=== PATIENT | female | born 1940 | race Caucasian/White ===

== ENCOUNTER 2016-05-27 16:55 | Inpatient (IN) ==
[2016-05-27] MEDS ORDERED: ONDANSETRON 4 MG/2 ML VIAL IV STA (17:27)
[2016-05-27] MEDS ORDERED: HYDROmorphone 2 MG/1 ML VIAL IV STA (17:27)
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
--- NOTE | 2016-05-27 17:54 | CT Report ---
Referring physician: Camden Clancy Exam: CT brain without contrast Date: 05/27/2016 Comparison: MRI brain 01/19/2010 Reason: Fall, head injury, headache Technique: Axial images of the head were obtained without the use of contrast. Total DLP was 1073.10 mGy*cm. Findings: No hydrocephalus or midline shift is present. There is no evidence of an acute infarction, recent intracranial hemorrhage or abnormal mass effect. Diffuse atrophy and cerebral hypodensities. The osseous structures appear intact. Minimal mucosal thickening in the paranasal sinuses. The mastoid air cells are clear. Impression: No acute intracranial abnormality is identified. Persistent atrophy and microvascular disease. Minimal sinusitis. The CT exam was performed using one or more of the following dose reduction techniques: Automated exposure control and adjustment of the mA and/or kV according to patient size. PROCEDURE INTERPRETED AT [facility] DEPARTMENT OF RADIOLOGY Final Report Signed by: Dr. Azra Rodriguez
[2016-05-27] MEDS ORDERED: HYDROmorphone 2 MG/1 ML VIAL ONE (18:09)
[2016-05-27] MEDS ORDERED: ONDANSETRON 4 MG/2 ML VIAL ONE (18:09)
--- NOTE | 2016-05-27 18:17 | CT Report ---
Exam: CT cervical spine without contrast Date: 05/27/2016 Comparison: None Reason: Fall, neck pain, neck trauma Technique: Axial images of the cervical spine were obtained without the use of contrast. Sagittal and coronal reformatted images were also acquired. Total DLP is 1073.10 mGy*cm. Findings: The alignment of the cervical spine is unremarkable. Chronic Schmorl's node with chronic appearing minimal compression of the superior vertebral endplate of T2. No definite acute fracture or spinal cord pathology. Sclerosis with osteophytes and subchondral cysts. 2.4 mm left lateral subluxation of C2 in relationship to C1. Arterial calcifications are noted. At C2-C3, osteophyte/disc complex which contacts the thecal sac. No spinal stenosis or foraminal stenosis.. At C3-C4, osteophyte/disc complex which contacts the thecal sac. No spinal stenosis with right and moderate left foraminal stenosis. At C4-C5, osteophyte/disc complex which contacts the thecal sac. No spinal stenosis with moderate bilateral foraminal stenosis. At C5-C6, osteophyte/disc complex which compresses the thecal sac. No spinal stenosis with moderate bilateral foraminal stenosis. At C6-C7, osteophyte/disc complex which contacts the thecal sac. No spinal stenosis with minimal right moderate left foraminal stenosis. At C7-T1, no disc protrusion, spinal stenosis, or foraminal stenosis. Impression: No definite acute fracture identified. 2.4 mm left lateral subluxation of C2 in relationship to C1. This finding may be somewhat positional or related to the significant multilevel DDD rather than ligamentous injury. If symptoms persist, MRI may be helpful for further evaluation. Chronic appearing Schmorl's node superiorly at T2. This CT exam was performed using one or more of the following dose reduction techniques: Automatic exposure control, adjustment of the MA and/or KV according to patient size, or use of iterative reconstruction technique. PROCEDURE INTERPRETED AT [facility] DEPARTMENT OF RADIOLOGY Final Report Signed by: Dr. Azra Rodriguez
[2016-05-27 18:34] LABS: Basophils % 0.1 % (0.0-0.8); Eosinophils # 0.1 10*3/uL (0.0-0.87); Eosinophils % 0.9 % (0.00-10.9); Hematocrit 37.2 VOL% (35.7-47.0); Hemoglobin 12.2 GM/DL (12.0-16.0); Immature Granulocytes % 0.4 %; Immature Granulocytes Absolute 0.03 #; Lymphocytes % 14.2 % (21.3-54.2); Mean Corpuscular HGB Conc 32.8 GM/DL (32-36); Mean Corpuscular Hemoglobin 32 PG (27-34); Mean Corpuscular Volume 96.9 FL (87-102); Monocytes # 0.7 10*3/uL (0.11-0.8); Monocytes % 10.2 % (1.7-12.7); Neutrophils # 5.2 10*3/uL (1.4-7.4); Neutrophils % 74.2 % (38.7-73.9); Platelet Count 278 T/CUMM (130-400); Red Blood Count 3.84 MC/CUMM (3.8-5.5); Red Cell Distribution Width 15.1 % (9.3-17.3)
--- NOTE | 2016-05-27 18:35 | XRay Report ---
Exam: XR hip 2v w pelvis LT Date: 05/27/2016 5:27 PM Comparison: 07/12/2011 Indication: Left hip pain after fall Technique:[AP pelvis with AP and lateral left hip] Findings: Chronic-appearing deformity of the ilium especially on the right. Acute fractures of the left superior and inferior pubic rami. Osteopenia with degenerative changes. Old healed fracture of the left femur with deformity of the mid to distal femur and residual metallic compression plate and screws. Impression: Osteopenia. Interval acute fractures of the left superior and inferior pubic rami. Chronic deformity of the ilium especially on the right and the left femur with degenerative changes. PROCEDURE INTERPRETED AT [facility] DEPARTMENT OF RADIOLOGY Final Report Signed by: Dr. Azra Rodriguez
--- NOTE | 2016-05-27 18:37 | XRay Report ---
Portable chest Date: 05/27/2016 Clinical history: Shortness of breath Comparison: 10/12/2013 Technique: Portable AP sitting chest Findings: The heart is minimally enlarged with uncoiling of the aorta. Chronic scarring in the lungs with minimal atelectasis at the left lung base. Osteopenia with postoperative findings in the right humerus postoperative findings and in the upper abdomen with prior cholecystectomy. Impression: Minimal cardiomegaly. Chronic scarring with minimal atelectasis at the left lung base. Osteopenia with postoperative findings in the right humerus. PROCEDURE INTERPRETED AT [facility] DEPARTMENT OF RADIOLOGY Final Report Signed by: Dr. Azra Rodriguez
--- NOTE | 2016-05-27 18:38 | XRay Report ---
Exam: XR shoulder 2V LT Date: 05/27/2016 5:27 PM Comparison: None Indication: Pain after fall Technique:[2 view left shoulder] Findings: Osteopenia. Minimal sclerosis and osteophytes. No fracture or dislocation. Impression: Osteopenia with minimal degenerative changes. No fracture or dislocation. PROCEDURE INTERPRETED AT [facility] DEPARTMENT OF RADIOLOGY Final Report Signed by: Dr. Azra Rodriguez
--- NOTE | 2016-05-27 18:38 | XRay Report ---
Exam: XR clavicle LT Date: 05/27/2016 5:27 PM Comparison: None Indication: Pain after fall Technique:[2 view left clavicle] Findings: Osteopenia. Minimal osteophytes. No fracture or dislocation. Impression: Osteopenia with minimal degenerative changes. No fracture or dislocation. PROCEDURE INTERPRETED AT [facility] DEPARTMENT OF RADIOLOGY Final Report Signed by: Dr. Azra Rodriguez
--- NOTE | 2016-05-27 18:39 | XRay Report ---
Exam: XR humerus LT Date: 05/27/2016 5:27 PM Comparison: None Indication: Fall, left humerus pain Technique:[AP and lateral left humerus] Findings: Osteopenia with minimal osteophytes. No fracture or dislocation. Impression: Osteopenia with minimal degenerative changes. No fracture or dislocation. PROCEDURE INTERPRETED AT [facility] DEPARTMENT OF RADIOLOGY Final Report Signed by: Dr. Azra Rodriguez
--- NOTE | 2016-05-27 18:42 | XRay Report ---
Exam: XR femur LT Date: 05/27/2016 5:28 PM Comparison: None Indication: Left hip pain after fall Technique:[AP and lateral left femur] Findings: Osteopenia. Acute displaced fractures of the left superior and inferior pubic ramus. The fracture extends into the area of the symphysis pubis. Chronic deformity of the mid to distal left femur with postoperative findings and old healed fracture. Lateral metallic compression plate with multiple screws. Progressive joint space narrowing especially at the knee. Impression: Osteopenia with acute displaced fractures of the left superior and inferior pubic rami. The fracture extends into the symphysis pubis. Old healed fracture of the left femur with chronic deformity of the mid to distal femur. Stable post operative changes. Progressive degenerative changes especially at the level of the knee. PROCEDURE INTERPRETED AT [facility] DEPARTMENT OF RADIOLOGY Final Report Signed by: Dr. Azra Rodriguez
[2016-05-27 18:44] LABS: PT Patient Result 10.7 SECS
[2016-05-27 19:01] LABS: Apearance,Urine CLOUDY (Clear); Bilirubin,Urine Negative (Negative); Blood, Urine Negative (Negative); Glucose,Urine (UA) Negative (Negative); Ketones,Urine 5 mg/dL (Negative); Mucus,Urine Occasional /LPF (Occasional); Nitrite,Urine Negative (Negative); Protein,Urine 30 MG/DL; RBC,Urine 1 /HPF (0-4); Urine Color Amber (Yellow); Urine Specific Gravity 1.034 (1.001-1.035); Urine Urobilinogen < 2.0 EU/DL (0.2-1.0); WBC,Urine 2 /HPF (0-6)
[2016-05-27 19:11] LABS: Albumin 3.6 G/DL (3.4-5.0); Bilirubin,Total 0.6 MG/DL (0.2-1.0); Calcium 8.8 MG/DL (8.5-10.1); Osmolality,Calculated 288.8 MOS/KG (273-304); Potassium 4.6 MMOL/L (3.5-5.1); Total Protein 6.3 G/DL (6.4-8.3)
[2016-05-27] MEDS ORDERED: ACETAMINOPHEN 325 MG TABLET PO PRN (20:56)
[2016-05-27] MEDS ORDERED: LACTULOSE 20 GM/30 ML UDCUP PO PRN (20:56)
[2016-05-27] MEDS: oxyCODONE/ACETAMINOPHEN 5-325 MG TABLET PO PRN (21:10)
[2016-05-27] MEDS: SODIUM CHLORIDE 0.9% 1,000 ML IV SCH (21:12)
[2016-05-27] MEDS: rOPINIRole 1 MG TABLET PO SCH (23:12)
[2016-05-27] MEDS: DONEPEZIL 10 MG TABLET PO SCH (23:12)
[2016-05-27] MEDS: DOCUSATE SODIUM 100 MG CAPSULE PO SCH (23:13)
[2016-05-27] MEDS: ESCITALOPRAM 10 MG TABLET PO SCH (23:13)
[2016-05-27] MEDS: VITAMIN E 400 UNIT CAPSULE PO SCH (23:13)
[2016-05-27] MEDS: MELOXICAM 7.5 MG TABLET PO SCH (23:13)
[2016-05-27] MEDS: MELATONIN 3 MG TABLET PO SCH (23:13)
[2016-05-28] MEDS: HYDROmorphone 2 MG/1 ML VIAL IV PRN ×2 (04:40→20:37)
[2016-05-28 06:51] LABS: Basophils % 0.2 % (0.0-0.8); Eosinophils # 0.3 10*3/uL (0.0-0.87); Eosinophils % 7.1 % (0.00-10.9); Hematocrit 33.8 VOL% (35.7-47.0); Immature Granulocytes % 0.5 %; Immature Granulocytes Absolute 0.02 #; Lymphocytes # 1.3 10*3/uL (1.4-4.0); Lymphocytes % 32.2 % (21.3-54.2); Mean Corpuscular HGB Conc 32.5 GM/DL (32-36); Mean Corpuscular Hemoglobin 32 PG (27-34); Monocytes # 0.5 10*3/uL (0.11-0.8); Monocytes % 11.3 % (1.7-12.7); Neutrophils % 48.7 % (38.7-73.9); Platelet Count 257 T/CUMM (130-400); Red Blood Count 3.45 MC/CUMM (3.8-5.5); Red Cell Distribution Width 15.4 % (9.3-17.3); White Blood Count 4.1 T/CUMM (4-12)
[2016-05-28 07:33] LABS: Albumin 2.9 G/DL (3.4-5.0); Bilirubin,Total 0.8 MG/DL (0.2-1.0); Calcium 8.2 MG/DL (8.5-10.1); Magnesium 2.3 MG/DL (1.8-2.4); Osmolality,Calculated 290.7 MOS/KG (273-304); Potassium 4.3 MMOL/L (3.5-5.1); Total Protein 5.5 G/DL (6.4-8.3)
[2016-05-28] MEDS ORDERED: PANTOPRAZOLE 40 MG TABLET PO SCH (09:00)
[2016-05-28] MEDS ORDERED: BEE POLLEN 550 MG PO SCH (09:00)
[2016-05-28] MEDS ORDERED: NON-FORMULARY MEDICATION (Lutein [Lutein] 20 MG) PO SCH (09:00)
[2016-05-28] MEDS: CHOLECALCIFEROL 1,000 UNIT TABLET PO SCH (09:16)
[2016-05-28] MEDS: FOLIC ACID 0.4 MG TABLET PO SCH (09:16)
[2016-05-28] MEDS: amLODIPine 5 MG TABLET PO SCH (09:16)
[2016-05-28] MEDS: MULTIVITAMIN (BEROCCA) TABLET PO SCH (09:16)
[2016-05-28] MEDS: DOCUSATE SODIUM 100 MG CAPSULE PO SCH ×2 (09:17→20:38)
[2016-05-28] MEDS: MEMANTINE 10 MG TABLET PO SCH ×2 (09:17→20:39)
[2016-05-28] MEDS: SOLIFENACIN 5 MG TABLET PO SCH (09:17)
[2016-05-28] MEDS: oxyCODONE/ACETAMINOPHEN 5-325 MG TABLET PO PRN ×2 (09:17→14:00)
[2016-05-28] MEDS: ROSUVASTATIN 10 MG TABLET PO SCH (09:17)
--- NOTE | 2016-05-28 09:58 | Orthopedic Consult Note ---
History of Present Illness Chief complaint: pelvic fx, shoulder pain History of present illness: Ms. Joseph is a 75 year old female who fell onto her left side in [place] while travelling back to [place] from [place]. She has an extensive history of a prior fractures of her femur and patella to her left leg. She has a slight leg length discrepancy. She had a midshaft femur fracture that was treated in traction and a distal femur fracture which was treated with a blade plate. She has had a patella fracture which was treated in [place]. She is complaining of left shoulder pain and significant left pelvic pain. The patient's recently passed last month. Left shoulder shows full passive range of motion. Active range of motion is moderately limited secondary to pain. She is slightly tender about her shoulder. She is nontender about her subacromial space. Strength testing is 4 + out of 5 secondary to pain. She has full range of motion of elbow and hand. Left upper extremity is neurovascularly intact. Left lower extremity shows multiple well-healed incisions about her femur and anterior knee. She is approximately a centimeter short. Motion is limited around her hip and knee secondary to pain. Knee is grossly stable. Skin, sensation, murmurs pulses are intact to her foot. Radiographs of her left upper extremity were reviewed and are negative for an acute injury. Radiographs pelvis and femur demonstrate prior well healed midshaft and distal femur fractures. She has a retained blade plate distally. She has displaced left superior and inferior pubic rami fractures. Impression: left pubic rami fractures. left rotator cuff strain Plan: Mobilize with PT/OT. wbat lle. Arixtra for dvt prophylaxis. Probable swing bed/TMR candidate Home Medications Medication Instructions Recorded Confirmed Type Amitriptyline HCl [Amitriptyline 25 mg PO QPM 05/27/16 05/27/16 History HCl] Amlodipine Besylate [Amlodipine 5 mg PO QAM 05/27/16 05/27/16 History Besylate] Bee Pollen 550 mg PO QAM 05/27/16 05/27/16 History Cholecalciferol (Vitamin D3) 2,000 unit PO QAM 05/27/16 05/27/16 History [Vitamin D3] Escitalopram [Lexapro] 20 mg PO BEDTIME 05/27/16 05/27/16 History Esomeprazole Magnesium [Nexium] 20 mg PO QPM 05/27/16 05/27/16 History Fenofibric Acid (Choline) 135 mg PO QAM 05/27/16 05/27/16 History [Fenofibric Acid] Folic Acid 0.8 mg PO QAM 05/27/16 05/27/16 History Lutein 20 mg PO QAM 05/27/16 05/27/16 History Melatonin 10 mg PO BEDTIME 05/27/16 05/27/16 History Meloxicam 7.5 mg PO BEDTIME 05/27/16 05/27/16 History Memantine HCl/Donepezil HCl 1 capsule PO BEDTIME 05/27/16 05/27/16 History [Namzaric 28-10 mg] Ropinirole HCl [Requip] 2 mg PO BEDTIME 05/27/16 05/27/16 History Rosuvastatin [Crestor] 10 mg PO QAM 05/27/16 05/27/16 History Solifenacin [Vesicare] 5 mg PO QAM 05/27/16 05/27/16 History Vitamin B Complex 1 each PO QAM 05/27/16 05/27/16 History Vitamin E 400 unit PO QPM 05/27/16 05/27/16 History diphenhydrAMINE HCl 50 mg PO BEDTIME PRN 05/27/16 05/27/16 History [diphenhydrAMINE Cap] fentaNYL 12 MCG/HR PATCH 1 patch TRANSDERM Q3DAY 05/27/16 05/27/16 History [Duragesic 12 Patch] Allergies Allergy/AdvReac Type Severity Reaction Status Date / Time No Known Allergies Allergy Unverified 05/27/16 17:32 12 point system: reviewed and no additional remarkable complaints except as stated Medical,Surgical,& Family Hx - Medical History Neurology: History of: Dementia HEENT: History of: Eye Problem (bilateral implants) Gastrointestinal: History of: GERD Musculoskeletal: History of: Back/Neck Problems, Musculoskeletal Problems ( arthritis) - Surgical History HEENT Surgeries: Surgical HX of: Tonsilectomy & Adenoidectomy (tonsilectomy) Abdominal Surgeries: Surgical HX of: Appendectomy, Cholecystectomy Reproductive Surgeries: Surgical HX of;: Hysterectomy Orthopedic Surgeries: Surgical HX of;: Implanted Devices (pins/needles in left leg), Orthopedic Surgery (neck surgery, right arm surgery), Total Knee Replacement (left) - Family History Family History: Reports;: Family Cancer (sister), Family Diabetes (mother), Family Hypertension (mother, father) - Social History Smoking Status: Unknown if ever smoked Frequency of Alcohol Use: None Type of Drug Use: None Functional capacity: independent ambulation Exam - Constitutional Vitals: Period Temp Pulse Resp BP Sys/Etienne Pulse Ox Last 24 Hr 97.6 F-98.2 F 74-86 18-20 105-119/64-84 91-95 Results - Labs CBC & BMP: 05/28/16 06:23 05/28/16 06:23
[2016-05-28] MEDS: FONDAPARINUX 2.5 MG/0.5 ML SYRINGE SUBCUT SCH (10:50)
[2016-05-28] MEDS: SODIUM CHLORIDE 0.9% 1,000 ML IV SCH (10:51)
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
[2016-05-28] MEDS: VITAMIN E 400 UNIT CAPSULE PO SCH (20:37)
[2016-05-28] MEDS: ONDANSETRON 4 MG/2 ML VIAL IV PRN (20:37)
[2016-05-28] MEDS: MELATONIN 3 MG TABLET PO SCH (20:38)
[2016-05-28] MEDS: MELOXICAM 7.5 MG TABLET PO SCH (20:38)
[2016-05-28] MEDS: PANTOPRAZOLE 40 MG TABLET PO SCH (20:38)
[2016-05-28] MEDS: AMITRIPTYLINE 25 MG TABLET PO SCH (20:39)
[2016-05-28] MEDS: DONEPEZIL 10 MG TABLET PO SCH (20:39)
[2016-05-28] MEDS: rOPINIRole 1 MG TABLET PO SCH (20:39)
[2016-05-28] MEDS: ESCITALOPRAM 10 MG TABLET PO SCH (20:39)
[2016-05-28] MEDS: BENZONATATE 100 MG CAPSULE PO SCH (23:20)
[2016-05-28] MEDS: DEXTROMETHORPHAN ER 6 MG/ML 90 ML/BOTTLE PO SCH (23:20)
[2016-05-29] MEDS: SODIUM CHLORIDE 0.9% 1,000 ML IV SCH (04:06)
[2016-05-29] MEDS: ONDANSETRON 4 MG/2 ML VIAL IV PRN (04:07)
[2016-05-29] MEDS: HYDROmorphone 2 MG/1 ML VIAL IV PRN ×3 (04:07→18:52)
--- NOTE | 2016-05-29 07:29 | Orthopedic Progress Note ---
Orthopedics - Subjective Interval history: Able to stand yesterday only. Feels a little better today. LLE nv unchanged. Continue therapy. Arixtra for dvt prophylaxis Discharge planning Exam - Constitutional Vitals: Period Temp Pulse Resp BP Sys/Etienne Pulse Ox Last 24 Hr 96.4 F-99.4 F 73-83 18-18 101-138/60-75 90-96 Results - Labs CBC & BMP: 05/28/16 06:23 05/28/16 06:23
--- NOTE | 2016-05-29 08:23 | Family Practice Progress Note ---
Family Practice - PN: Subj Interval history: Patient seen this morning. She is doing very well overall. Is sitting up in bed and eating a moderate amount of food. She is status post fracture of the superior and inferior ramus. Is not been ambulating at this time but is not having problem with chest pain or breathing or abdominal discomfort. She is able to move her legs without difficulty and has good pulses in both lower extremities. She does have a Merino catheter in and I want to get it out but she insisted at least 1 more day to keep. And so will discontinue it early in the morning tomorrow Exam (Progress Note) - Constitutional Vitals: Period Temp Pulse Resp BP Sys/Etienne Pulse Ox Last 24 Hr 96.4 F-99.4 F 73-83 18-18 118-138/60-75 90-96 Exam: Generally stable no acute distress HEENT neck is supple trachea midline oropharynx negative Cardia vascular rate is regular Lungs are clear no shortness of breath Abdomen soft nondistended Extremities good pulses bilateral lower extremity Results - Labs CBC & BMP: 05/28/16 06:23 05/28/16 06:23 Assessment and Plan (1) Pubic ramus fracture Status: Acute Assessment and plan: 05/28/16: Appreciate orthopedic consult on this case. Were getting physical therapy and OT on board. I will treat her palliatively for pain and hopefully get her to rehab the first of next week 05/29/2016: Continue PT and OT. We will plan on getting her swing bed Tuesday Current Visit: Yes (2) Depression Status: Acute Assessment and plan: 05/28/16: Patient is on antidepressant Lexapro and we will continue this, seems to be working well Current Visit: Yes (3) Hypertension, essential Status: Acute Assessment and plan: 05/28/16: Blood pressure is under good control at present 114/64 will continue current medication Current Visit: Yes (4) Vitamin D deficiency Status: Acute Assessment and plan: 05/28/16: We will check and maintain vitamin D levels after patient was discharged Current Visit: Yes
[2016-05-29] MEDS: MULTIVITAMIN (BEROCCA) TABLET PO SCH (08:48)
[2016-05-29] MEDS: amLODIPine 5 MG TABLET PO SCH (08:48)
[2016-05-29] MEDS: BENZONATATE 100 MG CAPSULE PO SCH ×3 (08:48→21:10)
[2016-05-29] MEDS: MEMANTINE 10 MG TABLET PO SCH ×2 (08:48→21:10)
[2016-05-29] MEDS: CHOLECALCIFEROL 1,000 UNIT TABLET PO SCH (08:48)
[2016-05-29] MEDS: FOLIC ACID 0.4 MG TABLET PO SCH (08:48)
[2016-05-29] MEDS: SOLIFENACIN 5 MG TABLET PO SCH (08:48)
[2016-05-29] MEDS: DOCUSATE SODIUM 100 MG CAPSULE PO SCH ×2 (08:49→21:10)
[2016-05-29] MEDS: ROSUVASTATIN 10 MG TABLET PO SCH (08:49)
[2016-05-29] MEDS: DEXTROMETHORPHAN ER 6 MG/ML 90 ML/BOTTLE PO SCH ×2 (08:49→21:10)
[2016-05-29] MEDS: FENOFIBRATE 145 MG TABLET PO SCH (08:49)
[2016-05-29] MEDS: FONDAPARINUX 2.5 MG/0.5 ML SYRINGE SUBCUT SCH (10:56)
[2016-05-29] MEDS: oxyCODONE/ACETAMINOPHEN 5-325 MG TABLET PO PRN (11:39)
[2016-05-29] MEDS ORDERED: methylPREDNISolone SOD SUC 40 MG/1 ML VIAL IV ONE (14:16)
[2016-05-29] MEDS ORDERED: ALBUTEROL/IPRATROPIUM 3 ML NEB RESP TX ONE (14:17)
[2016-05-29] MEDS ORDERED: ALBUTEROL/IPRATROPIUM 3 ML NEB RESP TX PRN (14:18)
--- NOTE | 2016-05-29 16:03 | XRay Report ---
History: Wheezing Date: 05/29/2016 Study: Chest x-ray PA and lateral Comparison exam: May 27, 2016 chest x-ray There is continued cardiomegaly. The mediastinal contours are unchanged. The pulmonary vasculature is not engorged. There is increasing patchy and strandy atelectasis/infiltrate in the lower lobes, left greater than right, compared to the previous study. There is no gross pleural effusion. Osseous structures are unchanged. Surgical hardware stabilizes a previous right humerus fracture. Impression: Increasing atelectasis/infiltrate in the lower lobes compared to the previous study. Consider pneumonia. Cardiomegaly PROCEDURE INTERPRETED AT [facility] Final Report Signed by: Dr. Lesley Kerr
[2016-05-29] MEDS: MELATONIN 3 MG TABLET PO SCH (21:10)
[2016-05-29] MEDS: VITAMIN E 400 UNIT CAPSULE PO SCH (21:10)
[2016-05-29] MEDS: PANTOPRAZOLE 40 MG TABLET PO SCH (21:10)
[2016-05-29] MEDS: DONEPEZIL 10 MG TABLET PO SCH (21:10)
[2016-05-29] MEDS: AMITRIPTYLINE 25 MG TABLET PO SCH (21:10)
[2016-05-29] MEDS: rOPINIRole 1 MG TABLET PO SCH (21:11)
[2016-05-29] MEDS: ESCITALOPRAM 10 MG TABLET PO SCH (21:11)
[2016-05-29] MEDS: MELOXICAM 7.5 MG TABLET PO SCH (21:11)
[2016-05-30 03:43] LABS: Hematocrit 31.5 VOL% (35.7-47.0); Hemoglobin 10.5 GM/DL (12.0-16.0); Immature Granulocytes % 0.8 %; Immature Granulocytes Absolute 0.04 #; Lymphocytes # 0.7 10*3/uL (1.4-4.0); Lymphocytes % 13.1 % (21.3-54.2); Mean Corpuscular HGB Conc 33.3 GM/DL (32-36); Mean Corpuscular Hemoglobin 32 PG (27-34); Mean Corpuscular Volume 94.9 FL (87-102); Mean Platelet Volume 9.3 FL (9.6-12.0); Monocytes # 0.2 10*3/uL (0.11-0.8); Monocytes % 4.5 % (1.7-12.7); Neutrophils # 4.2 10*3/uL (1.4-7.4); Neutrophils % 81.6 % (38.7-73.9); Platelet Count 250 T/CUMM (130-400); Red Blood Count 3.32 MC/CUMM (3.8-5.5); Red Cell Distribution Width 14.4 % (9.3-17.3); White Blood Count 5.1 T/CUMM (4-12)
[2016-05-30 04:06] LABS: Calcium 8.6 MG/DL (8.5-10.1); Potassium 4.4 MMOL/L (3.5-5.1)
--- NOTE | 2016-05-30 07:35 | Orthopedic Progress Note ---
Orthopedics - Subjective Interval history: She is progressing very slowly with therapy. She was able to sit in a chair and take a few steps yesterday. TMR approval still pending. LLE exam unchanged. Mobilize with therapy. Stop Merino. Discharge planning. Exam - Constitutional Vitals: Period Temp Pulse Resp BP Sys/Etienne Pulse Ox Last 24 Hr 96.9 F-98.7 F 78-92 14-20 122-158/66-82 90-99 Results - Labs CBC & BMP: 05/30/16 03:27 05/30/16 03:27
[2016-05-30] MEDS ORDERED: fentaNYL 12 MCG/HR PATCH TRANSDERM SCH (09:00)
[2016-05-30] MEDS: FOLIC ACID 0.4 MG TABLET PO SCH (09:01)
[2016-05-30] MEDS: MULTIVITAMIN (BEROCCA) TABLET PO SCH (09:02)
[2016-05-30] MEDS: ROSUVASTATIN 10 MG TABLET PO SCH (09:02)
[2016-05-30] MEDS: FONDAPARINUX 2.5 MG/0.5 ML SYRINGE SUBCUT SCH (09:02)
[2016-05-30] MEDS: BENZONATATE 100 MG CAPSULE PO SCH ×3 (09:02→20:55)
[2016-05-30] MEDS: CHOLECALCIFEROL 1,000 UNIT TABLET PO SCH (09:02)
[2016-05-30] MEDS: MEMANTINE 10 MG TABLET PO SCH ×2 (09:02→20:56)
[2016-05-30] MEDS: DEXTROMETHORPHAN ER 6 MG/ML 90 ML/BOTTLE PO SCH ×2 (09:02→20:56)
[2016-05-30] MEDS: DOCUSATE SODIUM 100 MG CAPSULE PO SCH ×2 (09:02→20:56)
[2016-05-30] MEDS: amLODIPine 5 MG TABLET PO SCH (09:02)
[2016-05-30] MEDS: FENOFIBRATE 145 MG TABLET PO SCH (09:02)
[2016-05-30] MEDS: SOLIFENACIN 5 MG TABLET PO SCH (09:02)
[2016-05-30] MEDS: HYDROmorphone 2 MG/1 ML VIAL IV PRN ×2 (09:16→20:57)
--- NOTE | 2016-05-30 11:00 | Family Practice Progress Note ---
Family Practice - PN: Subj Interval history: Patient seen this morning. She is doing fairly well, still having a little bit of pain but she was able to get up to the bathroom with assistance only, and had a good bowel movement this morning. She is very alert, no acute distress. Vital signs are stable at present and she is afebrile. Her lab this morning looks very good with a stable hemoglobin hematocrit of 10.5 and 31.5. She has been tolerating her diet fairly well. I do believe that she is going a little rehab and we are trying to get her into town later tomorrow morning. She has very little direct help at home Exam (Progress Note) - Constitutional Vitals: Period Temp Pulse Resp BP Sys/Etienne Pulse Ox Last 24 Hr 96.9 F-98.7 F 79-92 16-20 122-158/66-82 90-99 Exam: Generally stable no acute distress HEENT neck is supple trachea midline oropharynx negative Cardia vascular rate is regular Lungs are clear no shortness of breath Abdomen soft nondistended Extremities good pulses bilateral lower extremity. Ambulates with assistance only, at present Results - Labs CBC & BMP: 05/30/16 03:27 05/30/16 03:27 Assessment and Plan (1) Pubic ramus fracture Status: Acute Assessment and plan: 05/28/16: Appreciate orthopedic consult on this case. Were getting physical therapy and OT on board. I will treat her palliatively for pain and hopefully get her to rehab the first of next week 05/29/2016: Continue PT and OT. We will plan on getting her swing bed Tuesday05/30/2016: As above. Hopefully we will get her into swing bed tomorrow Current Visit: Yes (2) Depression Status: Acute Assessment and plan: 05/28/16: Patient is on antidepressant Lexapro and we will continue this, seems to be working well 05/30/2016: Patient is stable at this time Current Visit: Yes (3) Hypertension, essential Status: Acute Assessment and plan: 05/28/16: Blood pressure is under good control at present 114/64 will continue current medication Current Visit: Yes (4) Vitamin D deficiency Status: Acute Assessment and plan: 05/28/16: We will check and maintain vitamin D levels after patient was discharged Current Visit: Yes
[2016-05-30] MEDS: oxyCODONE/ACETAMINOPHEN 5-325 MG TABLET PO PRN ×2 (11:33→18:08)
[2016-05-30] MEDS: ESCITALOPRAM 10 MG TABLET PO SCH (20:52)
[2016-05-30] MEDS: rOPINIRole 1 MG TABLET PO SCH (20:52)
[2016-05-30] MEDS: MELOXICAM 7.5 MG TABLET PO SCH (20:55)
[2016-05-30] MEDS: VITAMIN E 400 UNIT CAPSULE PO SCH (20:55)
[2016-05-30] MEDS: MELATONIN 3 MG TABLET PO SCH (20:55)
[2016-05-30] MEDS: DONEPEZIL 10 MG TABLET PO SCH (20:56)
[2016-05-30] MEDS: AMITRIPTYLINE 25 MG TABLET PO SCH (20:56)
[2016-05-30] MEDS: PANTOPRAZOLE 40 MG TABLET PO SCH (20:56)
--- NOTE | 2016-05-31 08:42 | Orthopedic Progress Note ---
Orthopedics - Subjective Interval history: Comfortable. She was able to ambulate to the alberto yesterday. Neurovascularly unchanged. Plan: Follow-up appointment in 6 weeks. Weightbearing as tolerated left lower extremity with walker protection. Continue Arixtra while at [facility] rehab. Exam - Constitutional Vitals: Period Temp Pulse Resp BP Sys/Etienne Pulse Ox Last 24 Hr 96.3 F-99.1 F 59-85 16-20 114-148/65-71 90-95 Results - Labs CBC & BMP: 05/30/16 03:27 05/30/16 03:27
[2016-05-31] MEDS: ROSUVASTATIN 10 MG TABLET PO SCH (08:44)
[2016-05-31] MEDS: FOLIC ACID 0.4 MG TABLET PO SCH (08:44)
[2016-05-31] MEDS: MULTIVITAMIN (BEROCCA) TABLET PO SCH (08:44)
[2016-05-31] MEDS: DOCUSATE SODIUM 100 MG CAPSULE PO SCH (08:44)
[2016-05-31] MEDS: FENOFIBRATE 145 MG TABLET PO SCH (08:45)
[2016-05-31] MEDS: CHOLECALCIFEROL 1,000 UNIT TABLET PO SCH (08:45)
[2016-05-31] MEDS: amLODIPine 5 MG TABLET PO SCH (08:45)
[2016-05-31] MEDS: BENZONATATE 100 MG CAPSULE PO SCH (08:45)
[2016-05-31] MEDS: MEMANTINE 10 MG TABLET PO SCH (08:45)
[2016-05-31] MEDS: SOLIFENACIN 5 MG TABLET PO SCH (08:45)
[2016-05-31] MEDS: HYDROmorphone 2 MG/1 ML VIAL IV PRN (08:53)
--- NOTE | 2016-05-31 09:45 | Discharge Summary ---
Hospital Course - Hospital Course Hospital Course: Patient came in to the hospital after sustaining a fall. She broke her superior and inferior ramus. Took a few days to get her way where he could get on her feet and ambulate well enough to go to rehab. She has been accepted to swing bed will going there. We will keep her on Arixtra for a few days there. We will also continue on her other medicines and make sure that she is capable of taking care of herself as she does live at home by herself now. There is some discussion of her moving into her daughter's home soon Diagnosis - Discharge Diagnosis (1) Pubic ramus fracture Status: Acute (2) Depression Status: Acute (3) Hypertension, essential Status: Acute (4) Vitamin D deficiency Status: Acute Specialty Discharge - Follow Up or Referrals Follow up with: Jitendra Hollingsworth Jr., MD [Physician] - 07/12/16 8:45 am (6 weeks) Discharge Plan - Discharge Data Disposition: Swing Bed, Hos Based, [facility] Condition at Discharge: Stable Discharge Diet: advance to your usual diet Activity: as per physical therapy, increase activity as tolerated, other ( weight bear to lower extremitiy with walker) Hygiene: no restrictions Weight Bearing at Discharge: full weight bearing, weight bear as tolerated ( walker) Driving: not until seen by doctor Contact your physician if you experience:: fever over 101, Redness or swelling, pain uncontrolled by pain medications - Discharge Medications New Albuterol/Ipratropium Neb [Duoneb] 3 ml RESP TX RT Q4H PRN #0 PRN Reason: Shortness Of Breath/Wheezing Benzonatate [Tessalon] 100 mg PO TID capsule Docusate Sodium Cap [Colace Cap] 100 mg PO BID capsule Fondaparinux [Arixtra] 2.5 mg SUBCUT Q24H syringe Lactulose Liquid [Chronulac] 10 gm PO DAILY PRN #0 PRN Reason: Indigestion Memantine [Namenda] 10 mg PO BID tablet Acetaminophen Tab [Tylenol Tab] 650 mg PO Q6H PRN #0 tablet PRN Reason: Fever > 100.4 Or Headache Dextromethorphan ER Liquid [Delsym] 60 mg PO BID bottle Multivitamin (Berocca) [Berocca] 1 tablet PO QAM tablet Continue fentaNYL 12 MCG/HR PATCH [Duragesic 12 Patch] 1 patch TRANSDERM Q3DAY Rosuvastatin [Crestor] 10 mg PO QAM Folic Acid 0.8 mg PO QAM Memantine HCl/Donepezil HCl [Namzaric 28-10 mg] 1 capsule PO BEDTIME Esomeprazole Magnesium [Nexium] 20 mg PO QPM Amlodipine Besylate 5 mg PO QAM Vitamin E 400 unit PO QPM Escitalopram [Lexapro] 20 mg PO BEDTIME Lutein 20 mg PO QAM Bee Pollen 550 mg PO QAM Solifenacin [Vesicare] 5 mg PO QAM Cholecalciferol (Vitamin D3) [Vitamin D3] 2,000 unit PO QAM Ropinirole HCl [Requip] 2 mg PO BEDTIME Melatonin 10 mg PO BEDTIME Meloxicam 7.5 mg PO BEDTIME Amitriptyline HCl 25 mg PO QPM Fenofibric Acid (Choline) [Fenofibric Acid] 135 mg PO QAM Discontinued Vitamin B Complex 1 each PO QAM diphenhydrAMINE HCl [diphenhydrAMINE Cap] 50 mg PO BEDTIME PRN PRN Reason: Insomnia - Follow Up or Referral Follow Up: Jitendra Hollingsworth Jr., MD [Physician] - 07/12/16 8:45 am (6 weeks) - Forms/Instructions Instructions: Pelvic Fracture (DC) Exam - Constitutional Vitals: Period Temp Pulse Resp BP Sys/Etienne Pulse Ox Last 24 Hr 96.3 F-99.1 F 59-85 16-20 114-148/65-71 90-95 DS: Provider Date of admission: 05/27/16 19:16 Primary care physician: . No PCP Attending physician on admission: Antelmo Renee DO Consults: 05/27/16 20:56 Consult to Case Mgmt/Social Srvs [CONS] Routine Reason for Case Mgmt/Social Srvs: Discharge Planning Consult to Physical Therapy [CONS] Routine Reason for Physical Therapy: Weakness Start Therapy: Today Consult Comment: wbat lle Consult to Physician [CONS] Routine Comment: Left pelvic rami fracture Consulting Provider: Jitendra Hollingsworth Jr. Consulting Provider Notified: Yes When should Consulting Provider be notified: In am Person Notified: Ashlie Date Notified: 05/28/16 Time Notified: 08:50 Consult Notification Comment: Bita Hunter notified Ashlie at Dr. Hollingsworth 's office. 03/16/17 21:10 Consult to Pharmacy [CONS] Routine Reason for Pharmacy Consult: Adjust Meds Renal Funct 05/28/16 09:52 OT [Consult to Occupational Therapy] [CONS] Routine Reason for Occupational Therapy: Evaluate and Treat Start Therapy: Today Consult Comment: shoulder program Discharging clinician: Antelmo Renee DO
[2016-05-31] MEDS: FONDAPARINUX 2.5 MG/0.5 ML SYRINGE SUBCUT SCH (11:42)
[2016-05-31] MEDS: DEXTROMETHORPHAN ER 6 MG/ML 90 ML/BOTTLE PO SCH (12:43)
[2016-05-31] MEDS: oxyCODONE/ACETAMINOPHEN 5-325 MG TABLET PO PRN (12:55)
[2016-05-31 21:13] VITALS: BP 128/78
== END 2016-05-31 14:20 | disposition swing bed (61) | DRG 536 ==
LOC: EDUNIT# → EDBD → N.ED 16:55 → N.EDINP 19:16 → N.3E 20:41
PROVIDERS: ADMIT Family Medicine; ATTEND Family Medicine

== ENCOUNTER 2017-12-17 12:35 | Inpatient (IN) ==
[2017-12-17 15:09] LABS: Basophils % 0.5 % (0.0-0.8); Eosinophils # 0.2 10*3/uL (0.0-0.87); Eosinophils % 2.6 % (0.00-10.9); Hematocrit 41.2 VOL% (35.7-47.0); Hemoglobin 13.5 GM/DL (12.0-16.0); Immature Granulocytes % 0.2 %; Immature Granulocytes Absolute 0.01 #; Lymphocytes # 2.6 10*3/uL (1.4-4.0); Lymphocytes % 41.1 % (21.3-54.2); Mean Corpuscular HGB Conc 32.8 GM/DL (32-36); Mean Corpuscular Hemoglobin 33 PG (27-34); Mean Platelet Volume 8.9 FL (9.6-12.0); Monocytes # 0.5 10*3/uL (0.11-0.8); Monocytes % 7.8 % (1.7-12.7); Neutrophils % 47.8 % (38.7-73.9); Platelet Count 474 T/CUMM (130-400); Red Blood Count 4.16 MC/CUMM (3.8-5.5); Red Cell Distribution Width 14.1 % (9.3-17.3); White Blood Count 6.3 T/CUMM (4-12)
[2017-12-17 15:16] LABS: Apearance,Urine CLEAR (Clear); Bilirubin,Urine Negative (Negative); Blood, Urine Negative (Negative); Glucose,Urine (UA) Negative (Negative); Ketones,Urine Negative (Negative); Mucus,Urine Occasional /LPF (Occasional); Nitrite,Urine Negative (Negative); Protein,Urine Negative; RBC,Urine 1 /HPF (0-4); Squamous Epithelial Cell,Urine Occasional /HPF (0-10); Urine Specific Gravity 1.004 (1.001-1.035); Urine Urobilinogen < 2.0 EU/DL (0.2-1.0); WBC,Urine 1 /HPF (0-6)
[2017-12-17 15:17] LABS: Urine Color Yellow (Yellow)
[2017-12-17 15:28] LABS: Alanine Aminotransferase 21 U/L (13-56); Albumin 2.8 G/DL (3.4-5.0); Alkaline Phosphatase 100 U/L (45-117); Aspartate Amino Transferase 19 U/L (0-37); Bilirubin,Total < 0.39 MG/DL (0.2-1.0); Blood Urea Nitrogen 14 MG/DL (7-18); Calcium 8.8 MG/DL (8.5-10.1); Glucose 88 MG/DL (74-106); Osmolality,Calculated 276.5 MOS/KG (273-304); Potassium 4.4 MMOL/L (3.5-5.1); Sodium 139 MMOL/L (136-145); Total Protein 7.4 G/DL (6.4-8.3)
[2017-12-17] MEDS ORDERED: VANCOMYCIN INJ 1,000 MG in SODIUM CHLORIDE 0.9% 250 ML IV STA (15:52)
[2017-12-17] MEDS ORDERED: ONDANSETRON 4 MG/2 ML VIAL IV PRN (15:56)
[2017-12-17] MEDS: SODIUM CHLORIDE 0.9% 1,000 ML IV SCH (17:05)
[2017-12-17] MEDS ORDERED: INFLUENZA VIRUS VACCINE 0.5 ML SYRINGE IM ONE (17:37)
[2017-12-17] MEDS: fentaNYL 25 MCG/HR PATCH TRANSDERM SCH (17:38)
[2017-12-17] MEDS: ACETAMINOPHEN 325 MG TABLET PO PRN (18:31)
[2017-12-17] MEDS ORDERED: ACETAMINOPHEN 325 MG TABLET PO PRN (21:19)
[2017-12-17] MEDS: MELOXICAM 7.5 MG TABLET PO SCH (23:18)
[2017-12-17] MEDS: rOPINIRole 1 MG TABLET PO SCH (23:18)
[2017-12-17] MEDS: ESCITALOPRAM 10 MG TABLET PO SCH (23:18)
[2017-12-17] MEDS: MELATONIN 3 MG TABLET PO SCH (23:18)
[2017-12-17] MEDS: DOCUSATE SODIUM 100 MG CAPSULE PO SCH (23:19)
[2017-12-17] MEDS: AMITRIPTYLINE 25 MG TABLET PO SCH (23:19)
[2017-12-18] MEDS: SODIUM CHLORIDE 0.9% 1,000 ML IV SCH ×3 (01:30→17:27)
[2017-12-18 04:58] LABS: Basophils % 0.4 % (0.0-0.8); Eosinophils # 0.2 10*3/uL (0.0-0.87); Eosinophils % 3.1 % (0.00-10.9); Hematocrit 33.5 VOL% (35.7-47.0); Hemoglobin 10.6 GM/DL (12.0-16.0); Immature Granulocytes % 0.3 %; Immature Granulocytes Absolute 0.02 #; Lymphocytes # 2.1 10*3/uL (1.4-4.0); Lymphocytes % 28.8 % (21.3-54.2); Mean Corpuscular HGB Conc 31.6 GM/DL (32-36); Mean Corpuscular Hemoglobin 31 PG (27-34); Mean Platelet Volume 9.4 FL (9.6-12.0); Monocytes # 0.8 10*3/uL (0.11-0.8); Monocytes % 10.4 % (1.7-12.7); Neutrophils # 4.2 10*3/uL (1.4-7.4); Platelet Count 395 T/CUMM (130-400); Red Blood Count 3.42 MC/CUMM (3.8-5.5); Red Cell Distribution Width 13.9 % (9.3-17.3); White Blood Count 7.4 T/CUMM (4-12)
[2017-12-18] MEDS ORDERED: VANCOMYCIN INJ 1,000 MG in SODIUM CHLORIDE 0.9% 250 ML IV SCH (05:00)
[2017-12-18 05:18] LABS: Albumin 2.3 G/DL (3.4-5.0); Bilirubin,Total 0.4 MG/DL (0.2-1.0); Osmolality,Calculated 282.1 MOS/KG (273-304); Potassium 3.6 MMOL/L (3.5-5.1); Total Protein 6.2 G/DL (6.4-8.3)
[2017-12-18] MEDS: VANCOMYCIN INJ 1,000 MG in SODIUM CHLORIDE 0.9% 250 ML IV SCH ×2 (06:29→17:28)
[2017-12-18] MEDS: DOCUSATE SODIUM 100 MG CAPSULE PO SCH ×2 (10:11→22:08)
[2017-12-18] MEDS: amLODIPine 5 MG TABLET PO SCH (10:11)
[2017-12-18] MEDS: PANTOPRAZOLE 40 MG TABLET PO SCH (10:11)
[2017-12-18] MEDS: SOLIFENACIN 5 MG TABLET PO SCH (10:12)
[2017-12-18] MEDS: ESCITALOPRAM 10 MG TABLET PO SCH (22:08)
[2017-12-18] MEDS: MELATONIN 3 MG TABLET PO SCH (22:08)
[2017-12-18] MEDS: rOPINIRole 1 MG TABLET PO SCH (22:09)
[2017-12-18] MEDS: AMITRIPTYLINE 25 MG TABLET PO SCH (22:09)
[2017-12-18] MEDS: MELOXICAM 7.5 MG TABLET PO SCH (22:09)
[2017-12-19] MEDS: SODIUM CHLORIDE 0.9% 1,000 ML IV SCH ×3 (01:05→20:38)
[2017-12-19 04:36] LABS: Basophils % 0.3 % (0.0-0.8); Eosinophils # 0.4 10*3/uL (0.0-0.87); Eosinophils % 6.2 % (0.00-10.9); Hemoglobin 10.4 GM/DL (12.0-16.0); Immature Granulocytes % 0.2 %; Immature Granulocytes Absolute 0.01 #; Lymphocytes # 3.1 10*3/uL (1.4-4.0); Lymphocytes % 47.4 % (21.3-54.2); Mean Corpuscular HGB Conc 30.6 GM/DL (32-36); Mean Corpuscular Hemoglobin 31 PG (27-34); Mean Corpuscular Volume 100.3 FL (87-102); Mean Platelet Volume 9.1 FL (9.6-12.0); Monocytes # 0.7 10*3/uL (0.11-0.8); Monocytes % 11.4 % (1.7-12.7); Neutrophils # 2.2 10*3/uL (1.4-7.4); Neutrophils % 34.5 % (38.7-73.9); Platelet Count 311 T/CUMM (130-400); Red Blood Count 3.39 MC/CUMM (3.8-5.5); Red Cell Distribution Width 13.9 % (9.3-17.3); White Blood Count 6.5 T/CUMM (4-12)
[2017-12-19 04:57] LABS: Calcium 7.8 MG/DL (8.5-10.1); Potassium 4.3 MMOL/L (3.5-5.1)
[2017-12-19] MEDS: VANCOMYCIN INJ 1,000 MG in SODIUM CHLORIDE 0.9% 250 ML IV SCH ×2 (06:03→17:31)
[2017-12-19] MEDS: amLODIPine 5 MG TABLET PO SCH (08:19)
[2017-12-19] MEDS: PANTOPRAZOLE 40 MG TABLET PO SCH (08:19)
[2017-12-19] MEDS: SOLIFENACIN 5 MG TABLET PO SCH (08:19)
[2017-12-19] MEDS: DOCUSATE SODIUM 100 MG CAPSULE PO SCH ×2 (08:19→20:34)
[2017-12-19 08:39] LABS: Eosinophils 2 % (0-10); Giant Platelets Few; Hypochromasia 1+; Lymphocytes 49 % (20-55); Platelet Estimate Adequate; Segmented Neutrophils 39 % (50-85); Total Cells Counted 100
[2017-12-19] MEDS: ACETAMINOPHEN 325 MG TABLET PO PRN (17:37)
[2017-12-19] MEDS: rOPINIRole 1 MG TABLET PO SCH (20:33)
[2017-12-19] MEDS: MELOXICAM 7.5 MG TABLET PO SCH (20:33)
[2017-12-19] MEDS: MELATONIN 3 MG TABLET PO SCH (20:33)
[2017-12-19] MEDS: AMITRIPTYLINE 25 MG TABLET PO SCH (20:34)
[2017-12-19] MEDS: ESCITALOPRAM 10 MG TABLET PO SCH (20:34)
[2017-12-20 05:30] LABS: Calcium 7.9 MG/DL (8.5-10.1); Osmolality,Calculated 278.3 MOS/KG (273-304); Potassium 3.4 MMOL/L (3.5-5.1)
[2017-12-20] MEDS: VANCOMYCIN INJ 1,000 MG in SODIUM CHLORIDE 0.9% 250 ML IV SCH (05:54)
[2017-12-20] MEDS: SODIUM CHLORIDE 0.9% 1,000 ML IV SCH (06:05)
[2017-12-20] MEDS ORDERED: BACITRACIN OINT 0.9 GM PACK TOP ONE (06:13)
[2017-12-20] MEDS ORDERED: BACITRACIN 50,000 UNIT VIAL ONE (06:13)
[2017-12-20] MEDS ORDERED: POLYMYXIN B 500,000 UNIT VIAL ONE (06:13)
[2017-12-20] MEDS ORDERED: LIDOCAINE 1%/EPI INJ 20 ML VIAL ONE (06:24)
[2017-12-20] MEDS ORDERED: ONDANSETRON 4 MG/2 ML VIAL ONE (08:09)
[2017-12-20] MEDS ORDERED: fentaNYL 100 MCG/2 ML VIAL ONE (08:09)
[2017-12-20] MEDS ORDERED: PROPOFOL 200 MG/20 ML VIAL IV ONE (08:09)
[2017-12-20] MEDS ORDERED: SODIUM CHLORIDE 0.9% 100 ML IV ONE (08:10)
[2017-12-20] MEDS: PANTOPRAZOLE 40 MG TABLET PO SCH (10:18)
[2017-12-20] MEDS: DOCUSATE SODIUM 100 MG CAPSULE PO SCH (10:18)
[2017-12-20] MEDS: amLODIPine 5 MG TABLET PO SCH (10:19)
[2017-12-20] MEDS: SOLIFENACIN 5 MG TABLET PO SCH (10:19)
[2017-12-20] MEDS: fentaNYL 25 MCG/HR PATCH TRANSDERM SCH (10:19)
[2017-12-20] MEDS ORDERED: ALBUTEROL/IPRATROPIUM 3 ML NEB RESP TX SCH (10:30)
[2017-12-20] MEDS ORDERED: methylPREDNISolone SOD SUC 40 MG/1 ML VIAL IV ONE (11:00)
[2017-12-20 11:14] VITALS: BP 123/69
== END 2017-12-20 16:19 | disposition home health service (06) ==
LOC: N.ED 12:35 → N.EDINP 15:56 → N.2E 17:20
PROVIDERS: ADMIT Family Medicine; ATTEND Family Medicine

== ENCOUNTER 2019-05-24 11:49 | Inpatient (IN) ==
[2019-05-24] MEDS ORDERED: SODIUM CHLORIDE 0.9% 500 ML IV STA (12:10)
[2019-05-24 12:57] LABS: Basophils % 0.2 % (0.0-0.8); Eosinophils # 0.1 10*3/uL (0.0-0.87); Eosinophils % 0.9 % (0.00-10.9); Hemoglobin 9.7 GM/DL (12.0-16.0); Lymphocytes # 1.5 10*3/uL (1.4-4.0); Lymphocytes % 10.3 % (21.3-54.2); Mean Corpuscular HGB Conc 31.3 GM/DL (32-36); Mean Corpuscular Volume 102.3 FL (87-102); Monocytes % 9.4 % (1.7-12.7); Neutrophils % 77.2 % (38.7-73.9); Platelet Count 243 T/CUMM (130-400); Red Blood Count 3.03 MC/CUMM (3.8-5.5); Red Cell Distribution Width 16.1 % (9.3-17.3); White Blood Count 14.8 T/CUMM (4-12)
[2019-05-24 13:05] LABS: Albumin 2.3 G/DL (3.4-5.0); Bilirubin,Total 0.8 MG/DL (0.2-1.0); Calcium 7.9 MG/DL (8.5-10.1); Osmolality,Calculated 288.7 MOS/KG (273-304); Total Protein 5.3 G/DL (6.4-8.3)
[2019-05-24 13:11] LABS: CKMB % 1.3 %; Thyroid Stimulating Hormone 0.984 uIU/ml (0.358-3.74); Troponin I 0.044 NG/ML (0.00-0.045)
[2019-05-24 13:13] LABS: INR 1.3; PT Patient Result 14.6 SECS (9.6-12.2)
[2019-05-24] MEDS ORDERED: SODIUM CHLORIDE 0.9% 1,000 ML IV STA (13:15)
[2019-05-24 13:34] LABS: Apearance,Urine CLOUDY (Clear); Blood, Urine Moderate mg/dL (Negative); Glucose,Urine (UA) Negative (Negative); Hyaline Casts,Urine 98 /LPF (0-3); Ketones,Urine 5 mg/dL (Negative); Mucus,Urine Few /LPF (Occasional); Nitrite,Urine Negative (Negative); Protein,Urine 30 MG/DL; RBC,Urine 72 /HPF (0-4); Urine Color Amber (Yellow); Urine Specific Gravity 1.021 (1.001-1.035); WBC,Urine 74 /HPF (0-6)
[2019-05-24 13:39] LABS: Bilirubin,Urine Small mg/dL (Negative)
[2019-05-24] MEDS ORDERED: LEVOFLOXACIN INJ 750 MG in PREMIX 1 EACH IV STA (13:42)
[2019-05-24] MEDS ORDERED: ACETAMINOPHEN 500 MG TABLET PO PRN (14:08)
[2019-05-24] MEDS ORDERED: ONDANSETRON 4 MG/2 ML VIAL IV PRN (14:08)
[2019-05-24 14:29] LABS: Band Neutrophils 3 % (0-10); Lymphocytes 11 % (20-55); Metamyelocytes 1 %; Segmented Neutrophils 80 % (50-85); Total Cells Counted 100
[2019-05-24 14:30] LABS: Anisocytosis 2+; Hypersegmented Neutrophil 1+; Hypochromasia 1+; Macrocytosis 2+; Platelet Estimate Normal
[2019-05-24 14:31] LABS: Poikilocytosis Slight; Polychromasia Few; Toxic Granulation 1+
[2019-05-24] MEDS: SODIUM CHLORIDE 0.9% 1,000 ML IV SCH (18:21)
[2019-05-24] MEDS ORDERED: DONEPEZIL 10 MG TABLET PO SCH ×2 (21:00)
[2019-05-24] MEDS ORDERED: MELOXICAM 7.5 MG TABLET PO SCH (21:00)
[2019-05-24] MEDS: MEMANTINE 10 MG TABLET PO SCH (21:11)
[2019-05-24] MEDS: AMITRIPTYLINE 50 MG TABLET PO SCH (21:11)
[2019-05-24] MEDS: ATORVASTATIN 20 MG TABLET PO SCH (21:11)
[2019-05-24] MEDS: tiZANidine 4 MG TABLET PO SCH (21:11)
[2019-05-24] MEDS: rOPINIRole 1 MG TABLET PO SCH (21:11)
[2019-05-24] MEDS: GABAPENTIN 300 MG CAPSULE PO SCH (21:11)
[2019-05-25] MEDS: SODIUM CHLORIDE 0.9% 1,000 ML IV SCH ×5 (03:31→21:48)
[2019-05-25] MEDS: tiZANidine 4 MG TABLET PO SCH ×3 (05:25→21:48)
[2019-05-25] MEDS: PANTOPRAZOLE 40 MG TABLET PO SCH (05:25)
[2019-05-25 06:28] LABS: Basophils % 0.2 % (0.0-0.8); Eosinophils # 0.1 10*3/uL (0.0-0.87); Eosinophils % 0.8 % (0.00-10.9); Hematocrit 30.7 VOL% (35.7-47.0); Hemoglobin 9.5 GM/DL (12.0-16.0); Immature Granulocytes % 0.9 %; Immature Granulocytes Absolute 0.12 #; Lymphocytes # 1.2 10*3/uL (1.4-4.0); Lymphocytes % 9.3 % (21.3-54.2); Mean Corpuscular HGB Conc 30.9 GM/DL (32-36); Mean Platelet Volume 9.7 FL (9.6-12.0); Monocytes % 9.3 % (1.7-12.7); Neutrophils % 79.5 % (38.7-73.9); Platelet Count 241 T/CUMM (130-400); Red Blood Count 2.98 MC/CUMM (3.8-5.5); Red Cell Distribution Width 15.9 % (9.3-17.3); White Blood Count 12.7 T/CUMM (4-12)
[2019-05-25 06:54] LABS: Band Neutrophils 6 % (0-10); Eosinophils 1 % (0-10); Lymphocytes 6 % (20-55); Nucleated Red Blood Cells 1 (0-5); Segmented Neutrophils 81 % (50-85); Total Cells Counted 100
[2019-05-25 06:55] LABS: Macrocytosis 1+; Polychromasia Slight
[2019-05-25 06:56] LABS: Hypochromasia Slight; Platelet Estimate Normal
[2019-05-25 07:02] LABS: Calcium 7.9 MG/DL (8.5-10.1); Osmolality,Calculated 292.4 MOS/KG (273-304)
[2019-05-25] MEDS: FOLIC ACID 1 MG TABLET PO SCH (08:34)
[2019-05-25] MEDS: CALCIUM (CARBONATE)/VITAMIN D 600 MG-400 UNIT TABLET PO SCH (08:34)
[2019-05-25] MEDS: SERTRALINE 100 MG TABLET PO SCH (08:41)
[2019-05-25] MEDS: TOLTERODINE LA 4 MG CAPSULE PO SCH (08:41)
[2019-05-25] MEDS: DONEPEZIL 10 MG TABLET PO SCH (08:41)
[2019-05-25] MEDS: GABAPENTIN 300 MG CAPSULE PO SCH ×2 (08:41→21:48)
[2019-05-25] MEDS: buPROPion 100 MG TABLET PO SCH (08:41)
[2019-05-25] MEDS: amLODIPine 2.5 MG TABLET PO SCH (08:41)
[2019-05-25] MEDS: MEMANTINE 10 MG TABLET PO SCH ×2 (08:44→18:07)
[2019-05-25] MEDS ORDERED: PANTOPRAZOLE 40 MG TABLET PO SCH (09:00)
[2019-05-25] MEDS ORDERED: GLUCAGON 1 MG VIAL IM PRN (09:33)
[2019-05-25] MEDS ORDERED: DEXTROSE 10% 250 ML BAG IV PRN (09:33)
[2019-05-25] MEDS ORDERED: FLUCONAZOLE 150 MG TABLET PO ONE ×2 (09:44→10:45)
[2019-05-25] MEDS: INSULIN REGULAR 100 UNIT/ML SUBCUT SCH ×3 (11:47→21:51)
[2019-05-25] MEDS ORDERED: BISACODYL 10 MG SUPP RECTAL ONE (12:43)
[2019-05-25] MEDS ORDERED: LEVOFLOXACIN INJ 750 MG in PREMIX 1 EACH IV SCH (14:00)
[2019-05-25] MEDS: ENOXAPARIN 30 MG/0.3 ML SYRINGE SUBCUT SCH (14:05)
[2019-05-25] MEDS ORDERED: LINACLOTIDE 145 MCG CAPSULE PO ONE (16:00)
[2019-05-25] MEDS ORDERED: LINACLOTIDE 145 MCG CAPSULE PO SCH (16:00)
[2019-05-25] MEDS: rOPINIRole 1 MG TABLET PO SCH (21:47)
[2019-05-25] MEDS: AMITRIPTYLINE 50 MG TABLET PO SCH (21:48)
[2019-05-25] MEDS: ATORVASTATIN 20 MG TABLET PO SCH (21:48)
[2019-05-26 05:14] LABS: Basophils % 0.2 % (0.0-0.8); Eosinophils # 0.2 10*3/uL (0.0-0.87); Eosinophils % 2.4 % (0.00-10.9); Hematocrit 28.3 VOL% (35.7-47.0); Hemoglobin 9.1 GM/DL (12.0-16.0); Immature Granulocytes % 0.4 %; Immature Granulocytes Absolute 0.04 #; Lymphocytes # 1.1 10*3/uL (1.4-4.0); Mean Corpuscular HGB Conc 32.2 GM/DL (32-36); Mean Corpuscular Volume 99.3 FL (87-102); Mean Platelet Volume 9.9 FL (9.6-12.0); Monocytes % 8.9 % (1.7-12.7); Neutrophils % 76.1 % (38.7-73.9); Platelet Count 254 T/CUMM (130-400); Red Blood Count 2.85 MC/CUMM (3.8-5.5); Red Cell Distribution Width 16.4 % (9.3-17.3); White Blood Count 9.4 T/CUMM (4-12)
[2019-05-26 05:46] LABS: Band Neutrophils 10 % (0-10); Eosinophils 3 % (0-10); Lymphocytes 7 % (20-55); Platelet Estimate Normal; Segmented Neutrophils 75 % (50-85); Total Cells Counted 100
[2019-05-26 05:51] LABS: Anisocytosis Slight; Macrocytosis 1+
[2019-05-26 06:01] LABS: Albumin 1.8 G/DL (3.4-5.0); Bilirubin,Total 0.6 MG/DL (0.2-1.0); Osmolality,Calculated 293.3 MOS/KG (273-304); Total Protein 5.1 G/DL (6.4-8.3)
[2019-05-26] MEDS: PANTOPRAZOLE 40 MG TABLET PO SCH (06:11)
[2019-05-26] MEDS: tiZANidine 4 MG TABLET PO SCH ×3 (06:11→21:19)
[2019-05-26] MEDS: SODIUM CHLORIDE 0.9% 1,000 ML IV SCH ×3 (07:11→13:29)
[2019-05-26] MEDS: INSULIN REGULAR 100 UNIT/ML SUBCUT SCH ×4 (07:50→21:20)
[2019-05-26] MEDS: amLODIPine 2.5 MG TABLET PO SCH (08:53)
[2019-05-26] MEDS: FOLIC ACID 1 MG TABLET PO SCH (08:53)
[2019-05-26] MEDS: DONEPEZIL 10 MG TABLET PO SCH (08:54)
[2019-05-26] MEDS: GABAPENTIN 300 MG CAPSULE PO SCH ×2 (08:54→21:19)
[2019-05-26] MEDS: buPROPion 100 MG TABLET PO SCH (08:54)
[2019-05-26] MEDS: SERTRALINE 100 MG TABLET PO SCH (08:54)
[2019-05-26] MEDS: CALCIUM (CARBONATE)/VITAMIN D 600 MG-400 UNIT TABLET PO SCH (08:54)
[2019-05-26] MEDS: TOLTERODINE LA 4 MG CAPSULE PO SCH (08:54)
[2019-05-26] MEDS: ENOXAPARIN 30 MG/0.3 ML SYRINGE SUBCUT SCH (13:26)
[2019-05-26] MEDS ORDERED: LEVOFLOXACIN INJ 750 MG in PREMIX 1 EACH IV SCH (16:00)
[2019-05-26] MEDS: MEMANTINE 10 MG TABLET PO SCH (18:20)
[2019-05-26] MEDS: ATORVASTATIN 20 MG TABLET PO SCH (21:19)
[2019-05-26] MEDS: rOPINIRole 1 MG TABLET PO SCH (21:19)
[2019-05-26] MEDS: AMITRIPTYLINE 50 MG TABLET PO SCH (21:20)
[2019-05-27] MEDS: SODIUM CHLORIDE 0.9% 1,000 ML IV SCH ×3 (02:12→16:17)
[2019-05-27 05:26] LABS: Basophils % 0.1 % (0.0-0.8); Eosinophils # 0.6 10*3/uL (0.0-0.87); Eosinophils % 8.5 % (0.00-10.9); Hematocrit 28.4 VOL% (35.7-47.0); Immature Granulocytes Absolute 0.07 #; Lymphocytes # 1.5 10*3/uL (1.4-4.0); Lymphocytes % 20.5 % (21.3-54.2); Mean Corpuscular HGB Conc 31.7 GM/DL (32-36); Mean Corpuscular Volume 99.3 FL (87-102); Mean Platelet Volume 9.5 FL (9.6-12.0); Monocytes % 8.8 % (1.7-12.7); Neutrophils % 61.1 % (38.7-73.9); Platelet Count 261 T/CUMM (130-400); Red Blood Count 2.86 MC/CUMM (3.8-5.5); Red Cell Distribution Width 16.1 % (9.3-17.3); White Blood Count 7.3 T/CUMM (4-12)
[2019-05-27] MEDS: tiZANidine 4 MG TABLET PO SCH ×3 (05:48→21:16)
[2019-05-27] MEDS: PANTOPRAZOLE 40 MG TABLET PO SCH (05:48)
[2019-05-27 05:50] LABS: Albumin 1.7 G/DL (3.4-5.0); Bilirubin,Total 0.6 MG/DL (0.2-1.0); Calcium 7.5 MG/DL (8.5-10.1); Osmolality,Calculated 296.8 MOS/KG (273-304); Total Protein 4.9 G/DL (6.4-8.3)
[2019-05-27] MEDS: INSULIN REGULAR 100 UNIT/ML SUBCUT SCH ×4 (09:35→20:43)
[2019-05-27] MEDS: TOLTERODINE LA 4 MG CAPSULE PO SCH (09:37)
[2019-05-27] MEDS: amLODIPine 2.5 MG TABLET PO SCH (09:37)
[2019-05-27] MEDS: buPROPion 100 MG TABLET PO SCH (09:37)
[2019-05-27] MEDS: SERTRALINE 100 MG TABLET PO SCH (09:37)
[2019-05-27] MEDS: CALCIUM (CARBONATE)/VITAMIN D 600 MG-400 UNIT TABLET PO SCH (09:37)
[2019-05-27] MEDS: FOLIC ACID 1 MG TABLET PO SCH (09:37)
[2019-05-27] MEDS: GABAPENTIN 300 MG CAPSULE PO SCH ×2 (09:37→20:42)
[2019-05-27] MEDS: DONEPEZIL 10 MG TABLET PO SCH (09:37)
[2019-05-27] MEDS: ENOXAPARIN 30 MG/0.3 ML SYRINGE SUBCUT SCH (16:18)
[2019-05-27] MEDS: ATORVASTATIN 20 MG TABLET PO SCH (20:41)
[2019-05-27] MEDS: AMITRIPTYLINE 50 MG TABLET PO SCH (20:42)
[2019-05-27] MEDS: MEMANTINE 10 MG TABLET PO SCH (20:42)
[2019-05-27] MEDS: rOPINIRole 1 MG TABLET PO SCH (20:42)
[2019-05-28 04:57] LABS: Basophils % 0.4 % (0.0-0.8); Eosinophils # 0.7 10*3/uL (0.0-0.87); Eosinophils % 11.8 % (0.00-10.9); Hematocrit 29.8 VOL% (35.7-47.0); Hemoglobin 9.4 GM/DL (12.0-16.0); Immature Granulocytes % 1.2 %; Immature Granulocytes Absolute 0.07 #; Lymphocytes # 1.5 10*3/uL (1.4-4.0); Lymphocytes % 26.7 % (21.3-54.2); Mean Corpuscular HGB Conc 31.5 GM/DL (32-36); Mean Corpuscular Volume 99.3 FL (87-102); Mean Platelet Volume 9.5 FL (9.6-12.0); Monocytes % 9.3 % (1.7-12.7); Neutrophils % 50.6 % (38.7-73.9); Platelet Count 264 T/CUMM (130-400); Red Cell Distribution Width 16.3 % (9.3-17.3); White Blood Count 5.7 T/CUMM (4-12)
[2019-05-28 05:20] LABS: Calcium 7.6 MG/DL (8.5-10.1); Eosinophils 14 % (0-10); Hypochromasia Slight; Lymphocytes 28 % (20-55); Osmolality,Calculated 292.8 MOS/KG (273-304); Segmented Neutrophils 53 % (50-85); Total Cells Counted 100
[2019-05-28 05:21] LABS: Albumin 1.5 G/DL (3.4-5.0); Bilirubin,Total 0.4 MG/DL (0.2-1.0); Calcium 7.6 MG/DL (8.5-10.1); Macrocytosis 1+; Osmolality,Calculated 292.8 MOS/KG (273-304); Ovalocytes Slight; Target Cells Few; Total Protein 4.8 G/DL (6.4-8.3)
[2019-05-28 05:22] LABS: Platelet Estimate Adequate
[2019-05-28] MEDS: SODIUM CHLORIDE 0.9% 1,000 ML IV SCH (05:26)
[2019-05-28] MEDS: tiZANidine 4 MG TABLET PO SCH (05:44)
[2019-05-28] MEDS: PANTOPRAZOLE 40 MG TABLET PO SCH (05:44)
[2019-05-28] MEDS ORDERED: SERTRALINE 100 MG TABLET PO SCH (07:37)
[2019-05-28] MEDS: buPROPion 100 MG TABLET PO SCH (09:38)
[2019-05-28] MEDS: TOLTERODINE LA 4 MG CAPSULE PO SCH (09:38)
[2019-05-28] MEDS: FOLIC ACID 1 MG TABLET PO SCH (09:39)
[2019-05-28] MEDS: GABAPENTIN 300 MG CAPSULE PO SCH (09:39)
[2019-05-28] MEDS: DONEPEZIL 10 MG TABLET PO SCH (09:39)
[2019-05-28] MEDS: amLODIPine 2.5 MG TABLET PO SCH (09:39)
[2019-05-28] MEDS: CALCIUM (CARBONATE)/VITAMIN D 600 MG-400 UNIT TABLET PO SCH (09:39)
[2019-05-28] MEDS: INSULIN REGULAR 100 UNIT/ML SUBCUT SCH (09:40)
[2019-05-28 12:14] VITALS: BP 141/63
[2019-05-28] MEDS ORDERED: AMITRIPTYLINE 25 MG TABLET PO SCH (21:00)
== END 2019-05-28 13:03 | DRG 683 ==
LOC: N.ED 11:49 → N.EDINP 14:06 → N.2E 17:33
PROVIDERS: ADMIT Family Medicine; ATTEND Family Medicine

== ENCOUNTER 2019-07-17 13:35 | Observation (INO) ==
[2019-07-17 14:42] LABS: Basophils % 0.4 % (0.0-0.8); Eosinophils # 0.3 10*3/uL (0.0-0.87); Eosinophils % 6.5 % (0.00-10.9); Hematocrit 32.1 VOL% (35.7-47.0); Hemoglobin 10.3 GM/DL (12.0-16.0); Immature Granulocytes % 0.2 %; Immature Granulocytes Absolute 0.01 #; Lymphocytes # 2.1 10*3/uL (1.4-4.0); Lymphocytes % 39.8 % (21.3-54.2); Mean Corpuscular HGB Conc 32.1 GM/DL (32-36); Mean Platelet Volume 9.7 FL (9.6-12.0); Monocytes % 8.9 % (1.7-12.7); Neutrophils % 44.2 % (38.7-73.9); Platelet Count 219 T/CUMM (130-400); Red Blood Count 3.31 MC/CUMM (3.8-5.5); Red Cell Distribution Width 17.6 % (9.3-17.3); White Blood Count 5.3 T/CUMM (4-12)
[2019-07-17 16:01] LABS: Apearance,Urine CLOUDY (Clear); Bilirubin,Urine Negative (Negative); Blood, Urine Negative (Negative); Calcium Oxalate Crystals,Urine Moderate /HPF (Few); Glucose,Urine (UA) Negative (Negative); Hyaline Casts,Urine 23 /LPF (0-3); Ketones,Urine Negative (Negative); Mucus,Urine Many /LPF (Occasional); Nitrite,Urine Negative (Negative); Protein,Urine 30 MG/DL; RBC,Urine 89 /HPF (0-4); Urine Color Amber (Yellow); Urine Specific Gravity 1.023 (1.001-1.035); WBC,Urine 9 /HPF (0-6)
[2019-07-17 16:50] LABS: Albumin 1.7 G/DL (3.4-5.0); Bilirubin,Total 0.6 MG/DL (0.2-1.0); Calcium 7.8 MG/DL (8.5-10.1); Ferritin 445.1 ng/ml (8-252); Osmolality,Calculated 278.8 MOS/KG (273-304); Total Protein 5.1 G/DL (6.4-8.3)
[2019-07-17] MEDS ORDERED: ACETAMINOPHEN 325 MG TABLET PO PRN (17:24)
[2019-07-17] MEDS ORDERED: ONDANSETRON 4 MG/2 ML VIAL IV PRN (17:24)
[2019-07-17] MEDS ORDERED: cefTRIAXone 1,000 MG in SODIUM CHLORIDE 0.9% 100 ML IV STA (17:24)
[2019-07-17] MEDS: DOCUSATE SODIUM 100 MG CAPSULE PO SCH (21:32)
[2019-07-17] MEDS: DEXTROSE 5% NACL 0.45% 1,000 ML IV SCH (23:45)
[2019-07-18] MEDS: DEXTROSE 5% NACL 0.45% 1,000 ML IV SCH ×2 (06:25→17:07)
[2019-07-18] MEDS ORDERED: ACETAMINOPHEN 325 MG TABLET PO PRN (06:43)
[2019-07-18] MEDS ORDERED: POTASSIUM CHLORIDE RIDER 20 MEQ in PREMIX 1 EACH IV STA (06:46)
[2019-07-18] MEDS ORDERED: POTASSIUM CHLORIDE RIDER 10 MEQ in PREMIX 1 EACH IV PRN (06:50)
[2019-07-18] MEDS ORDERED: LACTULOSE 20 GM/30 ML UDCUP PO ONE (08:00)
[2019-07-18] MEDS: amLODIPine 2.5 MG TABLET PO SCH (09:28)
[2019-07-18] MEDS: POTASSIUM CHLORIDE 20 MEQ TABLET PO SCH (09:28)
[2019-07-18] MEDS: GABAPENTIN 300 MG CAPSULE PO SCH ×2 (09:28→20:30)
[2019-07-18] MEDS: PANTOPRAZOLE 40 MG TABLET PO SCH (09:28)
[2019-07-18] MEDS: DOCUSATE SODIUM 100 MG CAPSULE PO SCH ×2 (09:29→20:30)
[2019-07-18] MEDS: buPROPion 100 MG TABLET PO SCH (09:29)
[2019-07-18] MEDS: SERTRALINE 50 MG TABLET PO SCH (09:29)
[2019-07-18] MEDS: OXYBUTYNIN XL 10 MG TABLET PO SCH (09:29)
[2019-07-18] MEDS: MEMANTINE 5 MG TABLET PO SCH ×2 (09:29→20:30)
[2019-07-18] MEDS: MULTIVITAMIN (CENTRUM) TABLET PO SCH (09:29)
[2019-07-18] MEDS: DONEPEZIL 5 MG TABLET PO SCH (09:29)
[2019-07-18] MEDS: FOLIC ACID 1 MG TABLET PO SCH (09:29)
[2019-07-18] MEDS ORDERED: cefTRIAXone 1,000 MG in SODIUM CHLORIDE 0.9% 100 ML IV SCH (15:00)
[2019-07-18] MEDS: cefTRIAXone 1,000 MG in SYRINGE 1 EACH IV SCH (16:08)
[2019-07-18] MEDS ORDERED: AMITRIPTYLINE 10 MG TABLET PO SCH (21:00)
[2019-07-18] MEDS ORDERED: rOPINIRole 1 MG TABLET PO SCH (21:00)
[2019-07-18] MEDS ORDERED: ATORVASTATIN 10 MG TABLET PO SCH (21:00)
[2019-07-19 07:23] LABS: Basophils % 0.1 % (0.0-0.8); Eosinophils # 0.5 10*3/uL (0.0-0.87); Eosinophils % 6.6 % (0.00-10.9); Hematocrit 32.9 VOL% (35.7-47.0); Hemoglobin 10.7 GM/DL (12.0-16.0); Immature Granulocytes % 0.1 %; Immature Granulocytes Absolute 0.01 #; Lymphocytes # 2.1 10*3/uL (1.4-4.0); Lymphocytes % 28.1 % (21.3-54.2); Mean Corpuscular HGB Conc 32.5 GM/DL (32-36); Mean Corpuscular Volume 96.8 FL (87-102); Mean Platelet Volume 10.1 FL (9.6-12.0); Monocytes % 9.5 % (1.7-12.7); Neutrophils % 55.6 % (38.7-73.9); Platelet Count 259 T/CUMM (130-400); Red Cell Distribution Width 17.4 % (9.3-17.3); White Blood Count 7.4 T/CUMM (4-12)
[2019-07-19 07:49] LABS: Alanine Aminotransferase 70 U/L (13-56); Albumin 1.8 G/DL (3.4-5.0); Alkaline Phosphatase 98 U/L (45-117); Aspartate Amino Transferase 88 U/L (0-37); Bilirubin,Total < 0.39 MG/DL (0.2-1.0); Blood Urea Nitrogen 7 MG/DL (7-18); Calcium 8.1 MG/DL (8.5-10.1); Estimated Glom Filtration Rate 67 ML/MIN; Glucose 104 MG/DL (74-106); Osmolality,Calculated 278.3 MOS/KG (273-304); Total Protein 5.4 G/DL (6.4-8.3)
[2019-07-19] MEDS ORDERED: cefTRIAXone 1,000 MG in SYRINGE 1 EACH IV ONE (08:19)
[2019-07-19] MEDS ORDERED: POTASSIUM CHLORIDE 20 MEQ TABLET PO ONE (08:30)
[2019-07-19] MEDS: SERTRALINE 50 MG TABLET PO SCH (09:23)
[2019-07-19] MEDS: PANTOPRAZOLE 40 MG TABLET PO SCH (09:23)
[2019-07-19] MEDS: buPROPion 100 MG TABLET PO SCH (09:23)
[2019-07-19] MEDS: DOCUSATE SODIUM 100 MG CAPSULE PO SCH (09:23)
[2019-07-19] MEDS: amLODIPine 2.5 MG TABLET PO SCH (09:23)
[2019-07-19] MEDS: DONEPEZIL 5 MG TABLET PO SCH (09:23)
[2019-07-19] MEDS: FOLIC ACID 1 MG TABLET PO SCH (09:23)
[2019-07-19] MEDS: POTASSIUM CHLORIDE 20 MEQ TABLET PO SCH (09:23)
[2019-07-19] MEDS: MEMANTINE 5 MG TABLET PO SCH (09:23)
[2019-07-19] MEDS: GABAPENTIN 300 MG CAPSULE PO SCH (09:23)
[2019-07-19] MEDS: MULTIVITAMIN (CENTRUM) TABLET PO SCH (09:23)
[2019-07-19] MEDS: OXYBUTYNIN XL 10 MG TABLET PO SCH (09:23)
[2019-07-19] MEDS: cefTRIAXone 1,000 MG in SYRINGE 1 EACH IV SCH (16:56)
[2019-07-19 17:57] VITALS: BP 128/58
== END 2019-07-19 17:45 ==
LOC: EDUNIT# → EDBD → N.ED 13:35 → N.EDINP 13:35 → N.2E 18:34
PROVIDERS: ADMIT Family Medicine; ATTEND Family Medicine

== ENCOUNTER 2019-08-09 17:01 | Inpatient (IN) ==
[2019-08-09 18:11] LABS: Basophils # 0.1 10*3/uL (0.0-0.2); Basophils % 0.3 % (0.0-0.8); Eosinophils % 0.2 % (0.00-10.9); Hematocrit 32.2 VOL% (35.7-47.0); Hemoglobin 10.5 GM/DL (12.0-16.0); Immature Granulocytes % 0.8 %; Immature Granulocytes Absolute 0.12 #; Lymphocytes # 1.7 10*3/uL (1.4-4.0); Lymphocytes % 10.6 % (21.3-54.2); Mean Corpuscular HGB Conc 32.6 GM/DL (32-36); Mean Corpuscular Volume 95.8 FL (87-102); Mean Platelet Volume 9.8 FL (9.6-12.0); Monocytes % 6.9 % (1.7-12.7); Neutrophils % 81.2 % (38.7-73.9); Platelet Count 254 T/CUMM (130-400); Red Blood Count 3.36 MC/CUMM (3.8-5.5); Red Cell Distribution Width 16.1 % (9.3-17.3); White Blood Count 15.8 T/CUMM (4-12)
[2019-08-09 18:44] LABS: Alanine Aminotransferase 78 U/L (13-56); Alkaline Phosphatase 148 U/L (45-117); Aspartate Amino Transferase 158 U/L (0-37); Blood Urea Nitrogen 25 MG/DL (7-18); Calcium 7.6 MG/DL (8.5-10.1); Estimated Glom Filtration Rate 86 ML/MIN; Glucose 63 MG/DL (74-106); Osmolality,Calculated 280.4 MOS/KG (273-304); Total Protein 6.1 G/DL (6.4-8.3)
[2019-08-09 19:14] LABS: Sedimentation Rate-Westergren 46 MM/HR (0-30)
[2019-08-09] MEDS ORDERED: DEXTROSE 50% 25 GM/50 ML VIAL IV STA (19:25)
[2019-08-09] MEDS ORDERED: DEXAMETHASONE 4 MG/1 ML VIAL IV STA (19:28)
[2019-08-09] MEDS ORDERED: PIPERACILLIN/TAZOBACTAM 3,375 MG in SODIUM CHLORIDE 0.9% 100 ML IV STA (19:28)
[2019-08-09 20:03] LABS: Amylase 45 U/L (25-115)
[2019-08-09] MEDS ORDERED: DEXTROSE 50% 25 GM/50 ML SYRINGE IV ONE (20:06)
[2019-08-09] MEDS ORDERED: DEXAMETHASONE 10 MG/1 ML VIAL ONE (20:06)
[2019-08-10] MEDS ORDERED: ONDANSETRON 4 MG/2 ML VIAL IV PRN (00:54)
[2019-08-10] MEDS ORDERED: ACETAMINOPHEN 325 MG TABLET PO PRN (00:54)
[2019-08-10] MEDS ORDERED: MORPHINE 4 MG/1 ML VIAL IV PRN (00:54)
[2019-08-10] MEDS: DEXAMETHASONE 4 MG/1 ML VIAL IV SCH ×3 (04:00→20:30)
[2019-08-10] MEDS: PIPERACILLIN/TAZOBACTAM 3,375 MG in SODIUM CHLORIDE 0.9% 100 ML IV SCH ×3 (04:30→20:30)
[2019-08-10] MEDS: SODIUM CHLORIDE 0.9% 1,000 ML IV SCH (05:00)
[2019-08-10 06:36] LABS: Basophils % 0.2 % (0.0-0.8); Hematocrit 29.4 VOL% (35.7-47.0); Hemoglobin 9.6 GM/DL (12.0-16.0); Immature Granulocytes % 0.8 %; Immature Granulocytes Absolute 0.13 #; Lymphocytes # 1.1 10*3/uL (1.4-4.0); Lymphocytes % 6.6 % (21.3-54.2); Mean Corpuscular HGB Conc 32.7 GM/DL (32-36); Mean Corpuscular Volume 93.3 FL (87-102); Mean Platelet Volume 9.3 FL (9.6-12.0); Monocytes % 3.6 % (1.7-12.7); Neutrophils % 88.8 % (38.7-73.9); Platelet Count 304 T/CUMM (130-400); Red Blood Count 3.15 MC/CUMM (3.8-5.5); Red Cell Distribution Width 16.1 % (9.3-17.3); White Blood Count 16.4 T/CUMM (4-12)
[2019-08-10 06:49] LABS: Albumin 1.7 G/DL (3.4-5.0); Bilirubin,Total 1.1 MG/DL (0.2-1.0); Osmolality,Calculated 285.3 MOS/KG (273-304); Risk Ratio 2.85; Total Protein 5.6 G/DL (6.4-8.3); VLDL CHOLESTEROL 16.4 MG/DL
[2019-08-10] MEDS: ENOXAPARIN 40 MG/0.4 ML SYRINGE SUBCUT SCH (09:32)
[2019-08-10] MEDS: amLODIPine 2.5 MG TABLET PO SCH (09:32)
[2019-08-10] MEDS: MEMANTINE 5 MG TABLET PO SCH ×2 (09:32→20:30)
[2019-08-10] MEDS: DOCUSATE SODIUM 100 MG CAPSULE PO SCH ×2 (09:32→20:30)
[2019-08-10] MEDS: DONEPEZIL 5 MG TABLET PO SCH (09:32)
[2019-08-10] MEDS: GABAPENTIN 300 MG CAPSULE PO SCH ×2 (09:32→20:30)
[2019-08-10] MEDS: OXYBUTYNIN XL 10 MG TABLET PO SCH (09:32)
[2019-08-10] MEDS: PANTOPRAZOLE 40 MG VIAL IV SCH (09:32)
[2019-08-10] MEDS: POTASSIUM CHLORIDE 20 MEQ TABLET PO SCH (09:32)
[2019-08-10] MEDS: buPROPion 100 MG TABLET PO SCH (09:32)
[2019-08-10] MEDS: SERTRALINE 50 MG TABLET PO SCH (09:33)
[2019-08-10] MEDS: rOPINIRole 1 MG TABLET PO SCH (20:30)
[2019-08-10] MEDS: ATORVASTATIN 10 MG TABLET PO SCH (20:30)
[2019-08-10] MEDS: AMITRIPTYLINE 10 MG TABLET PO SCH (20:30)
[2019-08-11] MEDS: PIPERACILLIN/TAZOBACTAM 3,375 MG in SODIUM CHLORIDE 0.9% 100 ML IV SCH ×3 (04:30→20:15)
[2019-08-11] MEDS: DEXAMETHASONE 4 MG/1 ML VIAL IV SCH ×3 (05:12→20:05)
[2019-08-11 06:06] LABS: Basophils % 0.1 % (0.0-0.8); Eosinophils # 0.1 10*3/uL (0.0-0.87); Eosinophils % 0.3 % (0.00-10.9); Hematocrit 26.4 VOL% (35.7-47.0); Hemoglobin 8.8 GM/DL (12.0-16.0); Immature Granulocytes % 0.6 %; Immature Granulocytes Absolute 0.09 #; Lymphocytes # 3.1 10*3/uL (1.4-4.0); Lymphocytes % 20.8 % (21.3-54.2); Mean Corpuscular HGB Conc 33.3 GM/DL (32-36); Mean Corpuscular Volume 93.6 FL (87-102); Mean Platelet Volume 9.4 FL (9.6-12.0); Monocytes % 5.4 % (1.7-12.7); Neutrophils % 72.8 % (38.7-73.9); Platelet Count 285 T/CUMM (130-400); Red Blood Count 2.82 MC/CUMM (3.8-5.5); Red Cell Distribution Width 15.9 % (9.3-17.3); White Blood Count 14.9 T/CUMM (4-12)
[2019-08-11 06:28] LABS: Calcium 7.5 MG/DL (8.5-10.1); Osmolality,Calculated 275.7 MOS/KG (273-304)
[2019-08-11] MEDS: SODIUM CHLORIDE 0.9% 1,000 ML IV SCH ×2 (07:07→10:50)
[2019-08-11] MEDS: DONEPEZIL 5 MG TABLET PO SCH (08:59)
[2019-08-11] MEDS: DOCUSATE SODIUM 100 MG CAPSULE PO SCH ×2 (08:59→20:10)
[2019-08-11] MEDS: amLODIPine 2.5 MG TABLET PO SCH (08:59)
[2019-08-11] MEDS: GABAPENTIN 300 MG CAPSULE PO SCH ×2 (08:59→20:10)
[2019-08-11] MEDS: POTASSIUM CHLORIDE 20 MEQ TABLET PO SCH (08:59)
[2019-08-11] MEDS: MULTIVITAMIN (CENTRUM) TABLET PO SCH (08:59)
[2019-08-11] MEDS: ENOXAPARIN 40 MG/0.4 ML SYRINGE SUBCUT SCH (08:59)
[2019-08-11] MEDS: buPROPion 100 MG TABLET PO SCH (08:59)
[2019-08-11] MEDS: MEMANTINE 5 MG TABLET PO SCH ×2 (09:00→20:10)
[2019-08-11] MEDS: PANTOPRAZOLE 40 MG VIAL IV SCH (09:00)
[2019-08-11] MEDS: OXYBUTYNIN XL 10 MG TABLET PO SCH (09:00)
[2019-08-11] MEDS: SERTRALINE 50 MG TABLET PO SCH (09:00)
[2019-08-11] MEDS: ATORVASTATIN 10 MG TABLET PO SCH (20:10)
[2019-08-11] MEDS: rOPINIRole 1 MG TABLET PO SCH (20:10)
[2019-08-11] MEDS: AMITRIPTYLINE 10 MG TABLET PO SCH (20:10)
[2019-08-12] MEDS: PIPERACILLIN/TAZOBACTAM 3,375 MG in SODIUM CHLORIDE 0.9% 100 ML IV SCH ×3 (04:00→22:00)
[2019-08-12] MEDS: DEXAMETHASONE 4 MG/1 ML VIAL IV SCH ×3 (04:00→20:30)
[2019-08-12] MEDS: SODIUM CHLORIDE 0.9% 1,000 ML IV SCH ×3 (06:54→14:05)
[2019-08-12 07:07] LABS: Basophils % 0.1 % (0.0-0.8); Hematocrit 26.9 VOL% (35.7-47.0); Hemoglobin 8.8 GM/DL (12.0-16.0); Immature Granulocytes % 0.9 %; Immature Granulocytes Absolute 0.07 #; Lymphocytes # 1.6 10*3/uL (1.4-4.0); Lymphocytes % 20.9 % (21.3-54.2); Mean Corpuscular HGB Conc 32.7 GM/DL (32-36); Mean Corpuscular Volume 95.4 FL (87-102); Mean Platelet Volume 8.9 FL (9.6-12.0); Monocytes % 4.1 % (1.7-12.7); Platelet Count 273 T/CUMM (130-400); Red Blood Count 2.82 MC/CUMM (3.8-5.5); Red Cell Distribution Width 16.2 % (9.3-17.3); White Blood Count 7.9 T/CUMM (4-12)
[2019-08-12 07:41] LABS: Albumin 1.6 G/DL (3.4-5.0); Bilirubin,Total 0.9 MG/DL (0.2-1.0); Calcium 7.5 MG/DL (8.5-10.1); Osmolality,Calculated 278.5 MOS/KG (273-304); Total Protein 5.2 G/DL (6.4-8.3)
[2019-08-12] MEDS: DONEPEZIL 5 MG TABLET PO SCH (09:13)
[2019-08-12] MEDS: ENOXAPARIN 40 MG/0.4 ML SYRINGE SUBCUT SCH (09:13)
[2019-08-12] MEDS: GABAPENTIN 300 MG CAPSULE PO SCH ×2 (09:13→20:30)
[2019-08-12] MEDS: MULTIVITAMIN (CENTRUM) TABLET PO SCH (09:13)
[2019-08-12] MEDS: OXYBUTYNIN XL 10 MG TABLET PO SCH (09:13)
[2019-08-12] MEDS: SERTRALINE 50 MG TABLET PO SCH (09:13)
[2019-08-12] MEDS: buPROPion 100 MG TABLET PO SCH (09:13)
[2019-08-12] MEDS: DOCUSATE SODIUM 100 MG CAPSULE PO SCH ×2 (09:13→20:30)
[2019-08-12] MEDS: PANTOPRAZOLE 40 MG VIAL IV SCH (09:14)
[2019-08-12] MEDS: amLODIPine 2.5 MG TABLET PO SCH (09:16)
[2019-08-12] MEDS: MEMANTINE 5 MG TABLET PO SCH ×2 (09:16→20:30)
[2019-08-12] MEDS: POTASSIUM CHLORIDE 20 MEQ TABLET PO SCH (09:17)
[2019-08-12] MEDS: ALBUMIN 25% 25 GM in PREMIX 1 EACH IV SCH (17:26)
[2019-08-12] MEDS: rOPINIRole 1 MG TABLET PO SCH (20:30)
[2019-08-13] MEDS: ALBUMIN 25% 25 GM in PREMIX 1 EACH IV SCH (02:40)
[2019-08-13] MEDS: DEXAMETHASONE 4 MG/1 ML VIAL IV SCH (05:00)
[2019-08-13 05:48] LABS: Basophils % 0.2 % (0.0-0.8); Eosinophils # 0.1 10*3/uL (0.0-0.87); Hematocrit 26.1 VOL% (35.7-47.0); Hemoglobin 8.6 GM/DL (12.0-16.0); Immature Granulocytes % 1.5 %; Immature Granulocytes Absolute 0.12 #; Lymphocytes # 2.8 10*3/uL (1.4-4.0); Lymphocytes % 34.4 % (21.3-54.2); Mean Corpuscular Volume 96.3 FL (87-102); Monocytes % 7.7 % (1.7-12.7); Neutrophils % 55.2 % (38.7-73.9); Platelet Count 251 T/CUMM (130-400); Red Blood Count 2.71 MC/CUMM (3.8-5.5); Red Cell Distribution Width 15.9 % (9.3-17.3); White Blood Count 8.2 T/CUMM (4-12)
[2019-08-13] MEDS: SODIUM CHLORIDE 0.9% 1,000 ML IV SCH (06:02)
[2019-08-13 06:28] LABS: Bilirubin,Total 0.8 MG/DL (0.2-1.0); Calcium 7.4 MG/DL (8.5-10.1); Osmolality,Calculated 275.5 MOS/KG (273-304); Total Protein 5.1 G/DL (6.4-8.3)
[2019-08-13] MEDS: PIPERACILLIN/TAZOBACTAM 3,375 MG in SODIUM CHLORIDE 0.9% 100 ML IV SCH (06:57)
[2019-08-13] MEDS: ENOXAPARIN 40 MG/0.4 ML SYRINGE SUBCUT SCH (08:51)
[2019-08-13] MEDS: MEMANTINE 5 MG TABLET PO SCH (08:52)
[2019-08-13] MEDS: SERTRALINE 50 MG TABLET PO SCH (08:52)
[2019-08-13] MEDS: DOCUSATE SODIUM 100 MG CAPSULE PO SCH (08:52)
[2019-08-13] MEDS: MULTIVITAMIN (CENTRUM) TABLET PO SCH (08:52)
[2019-08-13] MEDS: GABAPENTIN 300 MG CAPSULE PO SCH (08:52)
[2019-08-13] MEDS: OXYBUTYNIN XL 10 MG TABLET PO SCH (08:52)
[2019-08-13] MEDS: POTASSIUM CHLORIDE 20 MEQ TABLET PO SCH (08:52)
[2019-08-13] MEDS: DONEPEZIL 5 MG TABLET PO SCH (08:52)
[2019-08-13] MEDS: buPROPion 100 MG TABLET PO SCH (08:52)
[2019-08-13] MEDS: amLODIPine 2.5 MG TABLET PO SCH (08:53)
[2019-08-13] MEDS ORDERED: FERROUS SULFATE 325 MG TABLET PO SCH (09:00)
[2019-08-13] MEDS ORDERED: DEXAMETHASONE 4 MG/1 ML VIAL IV SCH (09:00)
[2019-08-13] MEDS ORDERED: POTASSIUM CHLORIDE 20 MEQ TABLET PO ONE (09:00)
[2019-08-13] MEDS: PANTOPRAZOLE 40 MG VIAL IV SCH (10:14)
[2019-08-13 10:26] VITALS: BP 138/69
== END 2019-08-13 11:36 | DRG 155 ==
LOC: EDBD → EDUNIT# → N.ED 17:01 → N.EDINP 20:38 → N.2E 23:50
PROVIDERS: ADMIT Family Medicine; ATTEND Family Medicine

== ENCOUNTER 2019-08-22 16:15 | Inpatient (IN) ==
[2019-08-22] MEDS ORDERED: SODIUM CHLORIDE 0.9% 1,000 ML IV STA (16:43)
[2019-08-22 17:03] LABS: Basophils % 0.2 % (0.0-0.8); Eosinophils % 0.2 % (0.00-10.9); Hematocrit 26.2 VOL% (35.7-47.0); Hemoglobin 8.5 GM/DL (12.0-16.0); Immature Granulocytes % 0.2 %; Immature Granulocytes Absolute 0.01 #; Lymphocytes # 1.1 10*3/uL (1.4-4.0); Lymphocytes % 25.9 % (21.3-54.2); Mean Corpuscular HGB Conc 32.4 GM/DL (32-36); Mean Platelet Volume 9.2 FL (9.6-12.0); Monocytes % 8.8 % (1.7-12.7); Neutrophils % 64.7 % (38.7-73.9); Platelet Count 184 T/CUMM (130-400); White Blood Count 4.1 T/CUMM (4-12)
[2019-08-22 17:13] LABS: INR 1.1; PT Patient Result 11.9 SECS (9.8-11.9)
[2019-08-22 17:23] LABS: Albumin 1.8 G/DL (3.4-5.0); Bilirubin,Total 0.5 MG/DL (0.2-1.0); Calcium 7.2 MG/DL (8.5-10.1); Osmolality,Calculated 275.7 MOS/KG (273-304); Total Protein 4.9 G/DL (6.4-8.3)
[2019-08-22 17:58] LABS: Lymphocytes 18 % (20-55); Segmented Neutrophils 79 % (50-85); Total Cells Counted 100
[2019-08-22 17:59] LABS: Anisocytosis Slight; Hypochromasia 3+; Macrocytosis 1+; Platelet Estimate Normal
[2019-08-22 18:00] LABS: Reactive Lymphocytes Few
[2019-08-22 18:17] LABS: Apearance,Urine Slightly Hazy (Clear); Bilirubin,Urine Negative (Negative); Blood, Urine Negative (Negative); Glucose,Urine (UA) Negative (Negative); Ketones,Urine Negative (Negative); Mucus,Urine Many /LPF (Occasional); Nitrite,Urine Negative (Negative); Protein,Urine Negative; RBC,Urine 3 /HPF (0-4); Urine Specific Gravity 1.018 (1.001-1.035); WBC,Urine 1 /HPF (0-6)
[2019-08-22 18:18] LABS: Urine Color Yellow (Yellow)
[2019-08-22] MEDS ORDERED: ONDANSETRON 4 MG/2 ML VIAL IV PRN (19:19)
[2019-08-22] MEDS: SODIUM CHLORIDE 0.9% 1,000 ML IV SCH (21:30)
[2019-08-23 03:29] LABS: Basophils % 0.2 % (0.0-0.8); Eosinophils % 0.7 % (0.00-10.9); Hematocrit 26.7 VOL% (35.7-47.0); Hemoglobin 8.4 GM/DL (12.0-16.0); Immature Granulocytes % 0.5 %; Immature Granulocytes Absolute 0.02 #; Lymphocytes # 1.4 10*3/uL (1.4-4.0); Lymphocytes % 32.7 % (21.3-54.2); Mean Corpuscular HGB Conc 31.5 GM/DL (32-36); Mean Corpuscular Volume 97.8 FL (87-102); Mean Platelet Volume 9.4 FL (9.6-12.0); Monocytes % 6.6 % (1.7-12.7); Neutrophils % 59.3 % (38.7-73.9); Platelet Count 183 T/CUMM (130-400); Red Blood Count 2.73 MC/CUMM (3.8-5.5); Red Cell Distribution Width 16.1 % (9.3-17.3); White Blood Count 4.4 T/CUMM (4-12)
[2019-08-23 03:31] LABS: Albumin 1.7 G/DL (3.4-5.0); Bilirubin,Total 0.6 MG/DL (0.2-1.0); Calcium 7.3 MG/DL (8.5-10.1); Osmolality,Calculated 275.5 MOS/KG (273-304); Total Protein 4.9 G/DL (6.4-8.3)
[2019-08-23] MEDS: PANTOPRAZOLE 40 MG VIAL IV SCH (09:00)
[2019-08-23] MEDS: cefTRIAXone 1,000 MG in SYRINGE 1 EACH IV SCH (09:00)
[2019-08-23] MEDS ORDERED: AZITHROMYCIN 250 MG TABLET PO SCH (09:00)
[2019-08-23] MEDS: ZINC SULFATE 220 MG CAPSULE PO SCH (09:01)
[2019-08-23] MEDS: SODIUM CHLORIDE 0.9% 1,000 ML IV SCH (18:59)
[2019-08-24] MEDS: SODIUM CHLORIDE 0.9% 1,000 ML IV SCH ×2 (04:50→15:03)
[2019-08-24] MEDS ORDERED: guaiFENesin/CODEINE 5 ML LIQUID PO PRN (08:11)
[2019-08-24] MEDS ORDERED: AZITHROMYCIN 250 MG TABLET PO SCH (09:00)
[2019-08-24] MEDS: cefTRIAXone 1,000 MG in SYRINGE 1 EACH IV SCH (09:58)
[2019-08-24] MEDS: PANTOPRAZOLE 40 MG VIAL IV SCH (09:58)
[2019-08-24] MEDS: DOCUSATE SODIUM 100 MG CAPSULE PO SCH (09:58)
[2019-08-24] MEDS: ASCORBIC ACID 500 MG TABLET PO SCH ×2 (09:59→20:20)
[2019-08-24] MEDS ORDERED: HYDROXYCHLOROQUINE 200 MG TABLET PO SCH (15:00)
[2019-08-25] MEDS: SODIUM CHLORIDE 0.9% 1,000 ML IV SCH ×3 (02:37→23:35)
[2019-08-25 05:39] LABS: Basophils % 0.2 % (0.0-0.8); Eosinophils % 0.5 % (0.00-10.9); Hematocrit 25.8 VOL% (35.7-47.0); Hemoglobin 8.5 GM/DL (12.0-16.0); Immature Granulocytes % 0.5 %; Immature Granulocytes Absolute 0.03 #; Lymphocytes # 1.4 10*3/uL (1.4-4.0); Lymphocytes % 23.1 % (21.3-54.2); Mean Corpuscular HGB Conc 32.9 GM/DL (32-36); Mean Corpuscular Volume 94.2 FL (87-102); Mean Platelet Volume 9.2 FL (9.6-12.0); Monocytes % 5.8 % (1.7-12.7); Neutrophils % 69.9 % (38.7-73.9); Platelet Count 216 T/CUMM (130-400); Red Blood Count 2.74 MC/CUMM (3.8-5.5); Red Cell Distribution Width 15.9 % (9.3-17.3)
[2019-08-25 06:13] LABS: Albumin 1.5 G/DL (3.4-5.0); Bilirubin,Total 0.8 MG/DL (0.2-1.0); Calcium 7.1 MG/DL (8.5-10.1); Osmolality,Calculated 272.5 MOS/KG (273-304); Total Protein 4.8 G/DL (6.4-8.3)
[2019-08-25 06:39] LABS: Anisocytosis 1+; Hypochromasia 1+; Macrocytosis 1+; Platelet Estimate Normal
[2019-08-25] MEDS: PANTOPRAZOLE 40 MG VIAL IV SCH (09:23)
[2019-08-25] MEDS: cefTRIAXone 1,000 MG in SYRINGE 1 EACH IV SCH (09:23)
[2019-08-25] MEDS: DOCUSATE SODIUM 100 MG CAPSULE PO SCH (09:24)
[2019-08-25] MEDS: ASCORBIC ACID 500 MG TABLET PO SCH ×2 (09:24→20:04)
[2019-08-25] MEDS: ZINC SULFATE 220 MG CAPSULE PO SCH (09:24)
[2019-08-25] MEDS: ACETAMINOPHEN 325 MG TABLET PO PRN (16:47)
[2019-08-26] MEDS: ASCORBIC ACID 500 MG TABLET PO SCH ×2 (10:22→22:06)
[2019-08-26] MEDS: HYDROXYCHLOROQUINE 200 MG TABLET PO SCH ×2 (10:22→22:06)
[2019-08-26] MEDS: DOCUSATE SODIUM 100 MG CAPSULE PO SCH (10:22)
[2019-08-26] MEDS: PANTOPRAZOLE 40 MG VIAL IV SCH (10:23)
[2019-08-26] MEDS: cefTRIAXone 1,000 MG in SYRINGE 1 EACH IV SCH (10:24)
[2019-08-26] MEDS: OXYBUTYNIN XL 10 MG TABLET PO SCH (15:00)
[2019-08-26] MEDS: MULTIVITAMIN (CENTRUM) TABLET PO SCH (15:00)
[2019-08-26] MEDS: GABAPENTIN 300 MG CAPSULE PO SCH ×2 (15:00→22:05)
[2019-08-26] MEDS: buPROPion 100 MG TABLET PO SCH (15:00)
[2019-08-26] MEDS: SERTRALINE 50 MG TABLET PO SCH (15:01)
[2019-08-26] MEDS: FERROUS SULFATE 325 MG TABLET PO SCH (15:01)
[2019-08-26] MEDS: FOLIC ACID 1 MG TABLET PO SCH (15:01)
[2019-08-26] MEDS: SODIUM CHLORIDE 0.9% 1,000 ML IV SCH ×2 (16:47)
[2019-08-26] MEDS: APIXABAN 2.5 MG TABLET PO SCH (22:05)
[2019-08-26] MEDS: rOPINIRole 1 MG TABLET PO SCH (22:06)
[2019-08-27] MEDS: cefTRIAXone 1,000 MG in SYRINGE 1 EACH IV SCH (08:45)
[2019-08-27] MEDS: PANTOPRAZOLE 40 MG VIAL IV SCH (08:46)
[2019-08-27] MEDS: FERROUS SULFATE 325 MG TABLET PO SCH (08:46)
[2019-08-27] MEDS: ZINC SULFATE 220 MG CAPSULE PO SCH (08:47)
[2019-08-27] MEDS: MULTIVITAMIN (CENTRUM) TABLET PO SCH (08:47)
[2019-08-27] MEDS: FOLIC ACID 1 MG TABLET PO SCH (08:47)
[2019-08-27] MEDS: GABAPENTIN 300 MG CAPSULE PO SCH ×2 (08:47→20:48)
[2019-08-27] MEDS: OXYBUTYNIN XL 10 MG TABLET PO SCH (08:47)
[2019-08-27] MEDS: APIXABAN 2.5 MG TABLET PO SCH ×2 (08:47→20:48)
[2019-08-27] MEDS: HYDROXYCHLOROQUINE 200 MG TABLET PO SCH ×2 (08:47→20:48)
[2019-08-27] MEDS: ASCORBIC ACID 500 MG TABLET PO SCH ×2 (08:47→20:48)
[2019-08-27] MEDS: SERTRALINE 50 MG TABLET PO SCH (08:47)
[2019-08-27] MEDS: DOCUSATE SODIUM 100 MG CAPSULE PO SCH (08:48)
[2019-08-27] MEDS: buPROPion 100 MG TABLET PO SCH (10:00)
[2019-08-27 10:44] LABS: Basophils % 0.1 % (0.0-0.8); Eosinophils # 0.1 10*3/uL (0.0-0.87); Immature Granulocytes % 0.7 %; Immature Granulocytes Absolute 0.06 #; Lymphocytes # 1.3 10*3/uL (1.4-4.0); Lymphocytes % 15.1 % (21.3-54.2); Mean Corpuscular HGB Conc 33.3 GM/DL (32-36); Mean Corpuscular Volume 94.5 FL (87-102); Mean Platelet Volume 9.4 FL (9.6-12.0); Monocytes % 4.7 % (1.7-12.7); Neutrophils % 78.4 % (38.7-73.9); Platelet Count 290 T/CUMM (130-400); Red Blood Count 2.54 MC/CUMM (3.8-5.5); Red Cell Distribution Width 15.9 % (9.3-17.3); White Blood Count 8.8 T/CUMM (4-12)
[2019-08-27 11:05] LABS: Albumin 1.2 G/DL (3.4-5.0); Bilirubin,Total 0.7 MG/DL (0.2-1.0); Osmolality,Calculated 276.4 MOS/KG (273-304); Total Protein 4.7 G/DL (6.4-8.3)
[2019-08-27] MEDS ORDERED: DEXTROSE 10% 250 ML IV ONE (11:16)
[2019-08-27] MEDS ORDERED: DEXTROSE 10% 250 ML BAG IV PRN (11:27)
[2019-08-27 11:31] LABS: Band Neutrophils 2 % (0-10); Hypochromasia Slight; Lymphocytes 8 % (20-55); Macrocytosis 1+; Segmented Neutrophils 85 % (50-85); Total Cells Counted 100
[2019-08-27] MEDS: SODIUM CHLORIDE 0.9% 1,000 ML IV SCH ×2 (12:53→12:54)
[2019-08-27] MEDS: DEXTROSE 5% NACL 0.45% 1,000 ML IV SCH (13:50)
[2019-08-27] MEDS ORDERED: FUROSEMIDE 20 MG/2 ML VIAL IV ONE (14:00)
[2019-08-27] MEDS ORDERED: POTASSIUM CHLORIDE 20 MEQ TABLET PO ONE (14:00)
[2019-08-27] MEDS ORDERED: REMDESIVIR 200 MG in SODIUM CHLORIDE 0.9% 210 ML IV ONE (15:00)
[2019-08-27] MEDS: rOPINIRole 1 MG TABLET PO SCH (20:48)
[2019-08-27] MEDS: ACETAMINOPHEN 325 MG TABLET PO PRN (20:48)
[2019-08-28 06:07] LABS: Basophils % 0.1 % (0.0-0.8); Eosinophils # 0.2 10*3/uL (0.0-0.87); Eosinophils % 1.8 % (0.00-10.9); Hematocrit 22.7 VOL% (35.7-47.0); Hemoglobin 7.7 GM/DL (12.0-16.0); Immature Granulocytes % 0.8 %; Immature Granulocytes Absolute 0.07 #; Lymphocytes # 1.2 10*3/uL (1.4-4.0); Lymphocytes % 13.3 % (21.3-54.2); Mean Corpuscular HGB Conc 33.9 GM/DL (32-36); Platelet Count 277 T/CUMM (130-400); Red Blood Count 2.44 MC/CUMM (3.8-5.5); Red Cell Distribution Width 15.9 % (9.3-17.3); White Blood Count 8.7 T/CUMM (4-12)
[2019-08-28 06:32] LABS: Albumin 1.2 G/DL (3.4-5.0); Bilirubin,Total 0.9 MG/DL (0.2-1.0); Osmolality,Calculated 278.4 MOS/KG (273-304); Total Protein 4.3 G/DL (6.4-8.3)
[2019-08-28 06:48] LABS: Band Neutrophils 1 % (0-10); Eosinophils 1 % (0-10); Hypochromasia 2+; Lymphocytes 8 % (20-55); Ovalocytes Slight; Platelet Estimate Adequate; Segmented Neutrophils 88 % (50-85); Total Cells Counted 100
[2019-08-28 06:49] LABS: Macrocytosis Slight
[2019-08-28] MEDS ORDERED: SODIUM CHLORIDE 0.9% 1,000 ML IV PRN (08:22)
[2019-08-28] MEDS: SERTRALINE 50 MG TABLET PO SCH (09:37)
[2019-08-28] MEDS: FERROUS SULFATE 325 MG TABLET PO SCH (09:37)
[2019-08-28] MEDS: ASCORBIC ACID 500 MG TABLET PO SCH ×2 (09:37→21:32)
[2019-08-28] MEDS: FOLIC ACID 1 MG TABLET PO SCH (09:37)
[2019-08-28] MEDS: GABAPENTIN 300 MG CAPSULE PO SCH ×2 (09:37→21:32)
[2019-08-28] MEDS: HYDROXYCHLOROQUINE 200 MG TABLET PO SCH ×2 (09:37→21:32)
[2019-08-28] MEDS: APIXABAN 2.5 MG TABLET PO SCH ×2 (09:37→21:32)
[2019-08-28] MEDS: buPROPion 100 MG TABLET PO SCH (09:38)
[2019-08-28] MEDS: cefTRIAXone 1,000 MG in SYRINGE 1 EACH IV SCH (09:38)
[2019-08-28] MEDS: MULTIVITAMIN (CENTRUM) TABLET PO SCH (09:38)
[2019-08-28] MEDS: OXYBUTYNIN XL 10 MG TABLET PO SCH (09:38)
[2019-08-28] MEDS: DOCUSATE SODIUM 100 MG CAPSULE PO SCH (09:38)
[2019-08-28] MEDS: PANTOPRAZOLE 40 MG VIAL IV SCH (09:38)
[2019-08-28] MEDS: POTASSIUM CHLORIDE 20 MEQ TABLET PO PRN ×3 (15:37→21:32)
[2019-08-28] MEDS: DEXTROSE 5% NACL 0.45% 1,000 ML IV SCH (17:49)
[2019-08-28] MEDS: REMDESIVIR 100 MG in SODIUM CHLORIDE 0.9% 230 ML IV SCH (17:50)
[2019-08-28] MEDS: rOPINIRole 1 MG TABLET PO SCH (21:32)
[2019-08-29] MEDS ORDERED: HALOPERIDOL 5 MG/ML AMP IV PRN (00:25)
[2019-08-29] MEDS: POTASSIUM CHLORIDE 20 MEQ TABLET PO PRN (00:50)
[2019-08-29] MEDS ORDERED: LORATADINE 10 MG TABLET PO PRN (06:11)
[2019-08-29 06:25] LABS: Basophils % 0.4 % (0.0-0.8); Eosinophils % 0.2 % (0.00-10.9); Hematocrit 30.9 VOL% (35.7-47.0); Immature Granulocytes % 0.8 %; Immature Granulocytes Absolute 0.09 #; Lymphocytes % 9.1 % (21.3-54.2); Mean Corpuscular HGB Conc 32.4 GM/DL (32-36); Mean Corpuscular Volume 95.1 FL (87-102); Mean Platelet Volume 9.8 FL (9.6-12.0); Monocytes % 3.8 % (1.7-12.7); Neutrophils % 85.7 % (38.7-73.9); Platelet Count 316 T/CUMM (130-400); Red Blood Count 3.25 MC/CUMM (3.8-5.5); Red Cell Distribution Width 16.3 % (9.3-17.3); White Blood Count 10.7 T/CUMM (4-12)
[2019-08-29 06:59] LABS: Calcium 7.1 MG/DL (8.5-10.1)
[2019-08-29] MEDS ORDERED: HALOPERIDOL 5 MG/ML AMP IM PRN (07:30)
[2019-08-29] MEDS: MULTIVITAMIN (CENTRUM) TABLET PO SCH (09:57)
[2019-08-29] MEDS: GABAPENTIN 300 MG CAPSULE PO SCH ×2 (09:57→21:30)
[2019-08-29] MEDS: FOLIC ACID 1 MG TABLET PO SCH (09:57)
[2019-08-29] MEDS: ASCORBIC ACID 500 MG TABLET PO SCH ×2 (09:57→21:30)
[2019-08-29] MEDS: FAMOTIDINE 20 MG TABLET PO SCH (09:57)
[2019-08-29] MEDS: APIXABAN 2.5 MG TABLET PO SCH ×2 (09:57→21:30)
[2019-08-29] MEDS: HYDROXYCHLOROQUINE 200 MG TABLET PO SCH ×2 (09:57→21:30)
[2019-08-29] MEDS: OXYBUTYNIN XL 10 MG TABLET PO SCH (09:57)
[2019-08-29] MEDS: buPROPion 100 MG TABLET PO SCH (09:57)
[2019-08-29] MEDS: cefTRIAXone 1,000 MG in SYRINGE 1 EACH IV SCH (09:58)
[2019-08-29] MEDS: DEXAMETHASONE 4 MG/1 ML VIAL IV SCH ×2 (09:58→19:01)
[2019-08-29] MEDS: ZINC SULFATE 220 MG CAPSULE PO SCH (09:58)
[2019-08-29] MEDS: SERTRALINE 50 MG TABLET PO SCH (10:17)
[2019-08-29] MEDS: FERROUS SULFATE 325 MG TABLET PO SCH (10:17)
[2019-08-29] MEDS: DOCUSATE SODIUM 100 MG CAPSULE PO SCH (10:17)
[2019-08-29] MEDS: DEXTROSE 5% NACL 0.45% 1,000 ML IV SCH (10:20)
[2019-08-29] MEDS: REMDESIVIR 100 MG in SODIUM CHLORIDE 0.9% 230 ML IV SCH (16:02)
[2019-08-29] MEDS: rOPINIRole 1 MG TABLET PO SCH (21:30)
[2019-08-30] MEDS: DEXTROSE 5% NACL 0.45% 1,000 ML IV SCH (01:00)
[2019-08-30] MEDS: DEXAMETHASONE 4 MG/1 ML VIAL IV SCH ×2 (06:10→19:45)
[2019-08-30] MEDS: cefTRIAXone 1,000 MG in SYRINGE 1 EACH IV SCH (08:55)
[2019-08-30] MEDS: GABAPENTIN 300 MG CAPSULE PO SCH ×2 (08:56→21:00)
[2019-08-30] MEDS: MULTIVITAMIN (CENTRUM) TABLET PO SCH (08:56)
[2019-08-30] MEDS: OXYBUTYNIN XL 10 MG TABLET PO SCH (08:56)
[2019-08-30] MEDS: DOCUSATE SODIUM 100 MG CAPSULE PO SCH (08:56)
[2019-08-30] MEDS: buPROPion 100 MG TABLET PO SCH (08:56)
[2019-08-30] MEDS: FOLIC ACID 1 MG TABLET PO SCH (08:57)
[2019-08-30] MEDS: APIXABAN 2.5 MG TABLET PO SCH ×2 (08:57→20:59)
[2019-08-30] MEDS: SERTRALINE 50 MG TABLET PO SCH (08:57)
[2019-08-30] MEDS: FERROUS SULFATE 325 MG TABLET PO SCH (08:57)
[2019-08-30] MEDS: ASCORBIC ACID 500 MG TABLET PO SCH ×2 (08:57→21:00)
[2019-08-30] MEDS: FAMOTIDINE 20 MG TABLET PO SCH (08:57)
[2019-08-30] MEDS ORDERED: FUROSEMIDE 40 MG/4 ML VIAL IV ONE (12:00)
[2019-08-30] MEDS: REMDESIVIR 100 MG in SODIUM CHLORIDE 0.9% 230 ML IV SCH (15:06)
[2019-08-30] MEDS: rOPINIRole 1 MG TABLET PO SCH (21:00)
[2019-08-31 05:49] LABS: Basophils % 0.3 % (0.0-0.8); Hemoglobin 10.4 GM/DL (12.0-16.0); Immature Granulocytes % 0.9 %; Lymphocytes % 9.2 % (21.3-54.2); Mean Corpuscular HGB Conc 33.5 GM/DL (32-36); Mean Corpuscular Volume 91.2 FL (87-102); Mean Platelet Volume 9.2 FL (9.6-12.0); Monocytes % 2.8 % (1.7-12.7); Neutrophils % 86.8 % (38.7-73.9); Platelet Count 412 T/CUMM (130-400); Red Cell Distribution Width 16.9 % (9.3-17.3); White Blood Count 10.6 T/CUMM (4-12)
[2019-08-31 05:58] LABS: Calcium 7.8 MG/DL (8.5-10.1); Osmolality,Calculated 281.3 MOS/KG (273-304)
[2019-08-31] MEDS: DEXAMETHASONE 4 MG/1 ML VIAL IV SCH (06:19)
[2019-08-31 06:42] LABS: Band Neutrophils 1 % (0-10); Burr Cells Slight; Hypochromasia 1+; Lymphocytes 6 % (20-55); Ovalocytes Slight; Platelet Estimate Adequate; Segmented Neutrophils 91 % (50-85); Total Cells Counted 100
[2019-08-31] MEDS: ZINC SULFATE 220 MG CAPSULE PO SCH (08:07)
[2019-08-31] MEDS: APIXABAN 2.5 MG TABLET PO SCH (08:08)
[2019-08-31] MEDS: GABAPENTIN 300 MG CAPSULE PO SCH (08:08)
[2019-08-31] MEDS: FAMOTIDINE 20 MG TABLET PO SCH (08:08)
[2019-08-31] MEDS: OXYBUTYNIN XL 10 MG TABLET PO SCH (08:08)
[2019-08-31] MEDS: buPROPion 100 MG TABLET PO SCH (08:08)
[2019-08-31] MEDS: MULTIVITAMIN (CENTRUM) TABLET PO SCH (08:08)
[2019-08-31] MEDS: ASCORBIC ACID 500 MG TABLET PO SCH (08:08)
[2019-08-31] MEDS: DOCUSATE SODIUM 100 MG CAPSULE PO SCH (08:09)
[2019-08-31] MEDS: FERROUS SULFATE 325 MG TABLET PO SCH (08:09)
[2019-08-31] MEDS: SERTRALINE 50 MG TABLET PO SCH (08:09)
[2019-08-31] MEDS: FOLIC ACID 1 MG TABLET PO SCH (08:09)
[2019-08-31 16:01] VITALS: BP 110/53
[2019-08-31] MEDS: REMDESIVIR 100 MG in SODIUM CHLORIDE 0.9% 230 ML IV SCH (16:22)
== END 2019-08-31 22:27 | disposition expired | DRG 177 ==
LOC: EDUNIT# → EDBD → N.ED 16:15 → N.EDINP 16:15 → SUPCPDRO 19:18 → N.EDINP 20:45 → N.TELES 20:59 → N.2E 08-23 08:43
PROVIDERS: ADMIT Family Medicine; ATTEND Family Medicine